=== PATIENT | female | born 1945 | race Caucasian/White ===

== ENCOUNTER 2017-10-26 15:45 | Emergency (ER) | payer MEDICARE, MEDICAID ==
--- NOTE | 2017-10-26 16:41 | ERNOTE ---
Lower Extremity HPI - Narrative Date of Service: 10/26/17 - General Lower Extremities Pain: foot: bilateral, 1st toe: bilateral, 2nd toe: right, 3rd toe: right Time Seen by Provider: 10/26/17 16:11 Source: patient Exam Limitations: no limitations - Immun/Allergies/Home Medications Immunizations: IMMUNIZATION HX History of Influenza Vaccine Yes Allergies/Adverse Reactions: Allergies Allergy/AdvReac Type Severity Reaction Status Date / Time acetaminophen [From Tylenol] Allergy Intermediate affects Verified 10/26/17 15: 55 asthma Home Medications: HOME MEDICATIONS Doxepin HCl [Doxepin] 25 mg PO HS 08/19/13 [Last Taken Unknown] Ibuprofen [Motrin] 800 mg PO DAILY PRN 08/19/13 [Last Taken Unknown] Albuterol Sulfate [Ventolin HFA] 1 puff IH Q6H 10/26/17 [Last Taken Unknown] Duloxetine HCl [Cymbalta] 60 mg PO DAILY 10/26/17 [Last Taken Unknown] Mirtazapine [Mirtazapine (Remeron)] 15 mg PO HS 10/26/17 [Last Taken Unknown] Zolpidem Tartrate [Ambien] 5 mg PO HS 10/26/17 [Last Taken Unknown] - History of Present Illness Narrative: Pt. comes in with c/o lim bite to her R volar MTP pads of her foot. and her L great toe and 1st MTP pad. Pt. denies any SOB CP, NVD, fever but does state that she has pain of her volar foot and her L great toe is numb after being outside without her hoes on for 30minutes to an hour earlier this morning. Pt is unsure of timing. Pt. denies any prehospital treatment other than rewarming Occurred: this morning Location of Incident: home Method of Injury: Reports: other - exposure to cold Modifying Factors - (Improves): Reports: other - denies Modifying Factors - (Worsens): Reports: movement, other - palpation Associated Symptoms: Reports: sensory loss - L great toe Subsequent Symptoms: Reports: numbness Prior Treament: Denies: similar symptoms before Review of Systems - Review of Systems Constitutional: Present: no symptoms reported. Absent: fever, chills, weakness , fatigue, malaise EYE: Present: no symptoms reported. Absent: eye pain, double vision ENT: Present: no symptoms reported. Absent: ear pain, ear discharge, nose pain , nose congestion, sore throat Respiratory: Present: no symptoms reported. Absent: shortness of breath, cough , wheezing Cardiology: Present: no symptoms reported. Absent: chest pain, palpitations, edema Gastrointestinal/Abdominal: Present: no symptoms reported. Absent: nausea, vomiting, diarrhea Genitourinary: Present: no symptoms reported Musculoskeletal: Present: no symptoms reported. Absent: back pain, joint pain Skin: Present: lesions - L great toe volar MTP , change in color - L great toe. Absent: rash, change in hair/nails - Patient's Past Medical History Patient History - Medical: Anxiety Patient History - Cardiac/Respiratory: Asthma Patient History - Cancer: No Hx of Cancer Patient History - Surgical Procedures: Total Hip Replacement Patient History - Other: None - Social History Living Situations: home Psych History: Hx of Anxiety Smoking Status: Current every day smoker Alcohol Use: none Drug Use: none - Immunizations History of Influenza Vaccine: Yes Physical Exam - Physical Exam General Appearance: Present: wd/wn, alert, no apparent distress Head Exam: Present: normal inspection, no evidence of injury Eye Exam: Normal inspection: bilateral, PERRL: bilateral, EOMI: bilateral Ears, Nose, Throat: Present: normal ENT inspection, normal pharynx Neck: Present: normal inspection, nontender, supple, full range of motion. Absent: lymphadenopathy (R), lymphadenopathy (L) Respiratory: Present: no respiratory distress, normal breath sounds, no accessory muscle use, chest nontender, lungs clear. Absent: crackles, rales, rhonchi, wheezing Cardiovascular/Chest: Present: regular rate, rhythm, no murmur, normal peripheral pulses Gastrointestinal/Abdominal: Present: normal bowel sounds, nontender, nondistended, soft, no organomegaly Back Exam: Present: normal inspection Extremity Exam: Present: no edema, decreased range of motion - L great toe, bony tenderness - L great toe and metatarsal R 1st second and third metatarsal Neurological Exam: Present: alert, oriented, normal mood/affect, other - numb L great toe Skin Exam: Present: normal color, warm/dry, other - volar L great toe prox to the MTP joint quarter size painful lesion 1000% becerra eschar, L great toe distal to MTP joint with painless 100% yellow blister with fluid filled, volar R great toe prox to the MTP joint quarter size painful lesion 100% becerra eschar, volar R 2nd toe prox to the MTP joint drea size painful lesion 100% becerra eschar, volar R 3rd toe prox to the MTP joint dime size painful lesion 100% becerra eschar ED Progress - Date and Time Seen: Date and Time: 10/26/17 17:[address] Patel and he recommends transfer of pt. to [facility] burn center. Discussed with Dr Langley brand sales consultant for [facility] burn center and he accepts pt. for transfer. - Vital Signs Patient's Vital Signs:: I have reviewed the patient's vital signs. Vital Signs: Vital Signs 10/26/17 15:48 Temperature 36.3 C L Pulse Rate 84 Respiratory 12 Rate Blood Pressure 131/86 O2 Sat by Pulse 99 Oximetry - Progress/Reassessment Chief Complaint: Lower Extremity Pain/ Injury Progress:: Unchanged Departure Clinical Impression: Frostbite of both feet Qualifiers: Encounter type: initial encounter Qualified Code(s): T33.821A - Superficial frostbite of right foot, initial encounter; T33.822A - Superficial frostbite of left foot, initial encounter; T33.822A - Superficial frostbite of left foot, initial encounter - Departure Disposition: [facility] Condition: Fair Referrals: Trent Sequeira DO [Primary Care Provider] -
[2017-10-26] MEDS ORDERED: KETOROLAC TROMETHAMINE 30 MG/ML VIAL IM ONE (16:42)
[2017-10-26] MEDS ORDERED: KETOROLAC TROMETHAMINE 30 MG/ML VIAL ONE (16:43)
[2017-10-26] MEDS ORDERED: NORMAL SALINE 1,000 ML IV ONE (17:03)
[2017-10-26 17:19] VITALS: BP 125/79
== END 2017-10-26 17:30 | disposition short-term general hospital (02) ==
LOC: ER 15:45
DX: F41.9 Anxiety disorder, unspecified; J45.909 Unspecified asthma, uncomplicated; T33.821A Superficial frostbite of right foot, initial encounter; X31.XXXA Exposure to excessive natural cold, initial encounter; F17.200 Nicotine dependence, unspecified, uncomplicated; T33.822A Superficial frostbite of left foot, initial encounter; Y92.008 Other place in unspecified non-institutional (private) residence as the place of occurrence of the external cause

== ENCOUNTER 2019-09-22 09:42 | Inpatient (IN) ==
[2019-09-22] MEDS ORDERED: NORMAL SALINE 1,000 ML IV ONE ×2 (10:09→12:15)
--- NOTE | 2019-09-22 10:35 | ERNOTE ---
Medical Problem HPI - Narrative Date of Service: 09/22/19 - General Chief Complaint: General Assessment Time Seen by Provider: 09/22/19 09:48 Source: patient - Immun/Allergies/Home Medications Immunizations: IMMUNIZATION HX Immunizations Up to Date No History of Influenza Vaccine Yes Allergies/Adverse Reactions: Allergies acetaminophen [From Tylenol] Allergy (Intermediate, Verified 12/02/18 13:58) affects asthma aspirin Allergy (Intermediate, Verified 12/02/18 13:58) Breathing troubles atorvastatin [From Lipitor] Adverse Reaction (Intermediate, Verified 12/02/18 13:58) Memory issues naproxen [From Naprosyn] Adverse Reaction (Unknown, Verified 12/02/18 13:58) Swelling in lower extremity Home Medications: HOME MEDICATIONS albuterol sulfate 90 mcg/actuation aerosol inhaler 2 puff IH Q6H PRN #8.5 g 08/22/18 [Last Taken Unknown] zolpidem 5 mg tablet 5 mg PO HS #30 tab 08/26/18 [Last Taken Unknown] amoxicillin 875 mg-potassium clavulanate 125 mg tablet 1 tab PO BID #28 tab 09/10/18 [Last Taken Unknown] terbinafine HCl 250 mg tablet 250 mg PO DAILY #30 tab 09/10/18 [Last Taken Unknown] doxepin 25 mg capsule 25 mg PO HS #90 cap 09/22/18 [Last Taken Unknown] fluticasone furoate 100 mcg-vilanterol 25 mcg/dose inhalation powder 1 inh IH DAILY #28 ea 09/22/18 [Last Taken Unknown] fluticasone propionate 50 mcg/actuation nasal spray,suspension 1 spray OLIVER Q12H PRN #16 g 09/22/18 [Last Taken Unknown] mirtazapine 15 mg tablet 15 mg PO HS #90 tab 09/22/18 [Last Taken Unknown] oxybutynin chloride 5 mg tablet 5 mg PO DAILY #90 tab 09/22/18 [Last Taken Unknown] duloxetine 60 mg capsule,delayed release 60 mg PO DAILY #30 cap 07/27/19 [Last Taken Unknown] - History of Present History Narrative: patient presents to ed with c/o weakness, has not eating for several days Timing: constant, getting worse Severity: moderate Modifying Factors - (Improves): Present: other - nothinig Modifying Factors - (Worsens): Present: other - nothing Review of Systems - Review of Systems Constitutional: Present: weakness, fatigue, malaise EYE: Present: no symptoms reported ENT: Present: other - patitient unable to speak due paralysis of vocal cords Respiratory: Present: no symptoms reported Cardiology: Present: no symptoms reported Gastrointestinal/Abdominal: Present: no symptoms reported Genitourinary: Present: no symptoms reported Musculoskeletal: Present: no symptoms reported Skin: Present: no symptoms reported Neurological: Present: no symptoms reported, dizziness/light-headedness, weakness Medical History (Last Updated 02/10/19 @ 16:03 by Jasmin Solomon, RN) Dysphonia (Resolved) Onset Date: 12/19/18 Dr. George Greenfield, [facility] Complete paralysis of vocal cord (Chronic) Onset Date: 12/19/18 Dr. George Greenfield, [facility]. Left. Osteoarthritis (Chronic) Onset Date: Unknown Psoriasis (Chronic) Onset Date: Unknown Overactive bladder (Chronic) Onset Date: 03/14/18 Neuropathy (Chronic) Onset Date: Unknown left leg numbness on an intermittent basis Knee pain (Chronic) Onset Date: Unknown Joint pain (Chronic) Onset Date: Unknown DJD (degenerative joint disease) (Chronic) Onset Date: ~2006 DDD at L4-L5 and spondylosthesis at L4. Neuroforaminal stenosis at L5. Diverticulosis of colon (Chronic) Onset Date: ~07/2005 cecum adenomatous polypand sigmoid diverticulosis Depression (Chronic) Onset Date: Unknown COPD (chronic obstructive pulmonary disease) (Chronic) Onset Date: ~1979 Asthma (Chronic) Onset Date: ~08/28/12 GERD (gastroesophageal reflux disease) Onset Date: Unknown Lumbar disc herniation Onset Date: Unknown Pessary maintenance Onset Date: ~10/29/14 Rectocele Onset Date: Unknown Uterovaginal prolapse, incomplete Onset Date: Unknown Cystocele Onset Date: 05/21/14 Hyperlipidemia Onset Date: Unknown Hypertension Onset Date: Unknown Hypokalemia Onset Date: Unknown Cerebral infarct Onset Date: Unknown lacunar infarcts Surgical History: Surgical History (Last Updated 01/13/19 @ 08:47 by Jasmin Solomon, RN) History of bronchoscopy Onset Date: 01/09/19 Dr. George Greenfield, [facility]. Flexible bronchoscopy. History of carpal tunnel release Onset Date: ~200601/15/2007-right 02/26/2007 left History of colonoscopy Onset Date: ~07/2005 mild/mod diverticulosis involving colon distal to 40cm, 2mm plypoid change to the cecum History of hip replacement Onset Date: ~2007 b/l History of laryngoscopy Onset Date: 01/09/19 Dr. George Greenfield, [facility]. Direct laryngoscopy with endoscope and left Prolaryn gel injection for vocal cord paralysis. History of tubal ligation Onset Date: ~1977 Family History: Family History (Last Updated 09/08/18 @ 15:02 by Kiki Benson [facility]) Sister Hypertension Myocardial infarction Father , age 83-5 vessel CABG Heart disease Mother , age 82 Cancer Colon CA CVA (cerebral vascular accident) Hypertension Glaucoma Psoriasis Daughter , age 42 Cancer Social History: (Last Updated 12/18/18 @ 22:53 by Trent Sequeira DO) Social History: adopted: No long term: No Marital status: lives independently: Yes household members: none number of children: 2 caregiver/support person: Yes current occupational status: retired current occupation: Artist Highest education level completed: Associate degree: occupat Service: No Tobacco: Smoking Status: Light tobacco smoker Alcohol: alcohol intake: current alcohol intake frequency: holiday/special occasion Substance Use: substance use type: does not use Dietary Habits: caffeine: Yes Type: carbonated beverages, coffee Dian/Rastafarian: special dian needs: No Physical Exam - Physical Exam General Appearance: Present: mild distress, lethargic Head Exam: Present: normal inspection, no evidence of injury Eye Exam: Normal inspection: bilateral, PERRL: bilateral, EOMI: bilateral Ears, Nose, Throat: Present: dry mucous membranes Neck: Present: normal inspection, nontender Respiratory: Present: no respiratory distress, normal breath sounds, no accessory muscle use, chest nontender, lungs clear Cardiovascular/Chest: Present: regular rate, rhythm, no murmur, normal peripheral pulses Gastrointestinal/Abdominal: Present: normal bowel sounds, nontender, nondistended, soft, no organomegaly Back Exam: Present: normal inspection, normal range of motion, no CVA tenderness, no vertebral tenderness Extremity Exam: Present: normal inspection, non-tender, normal range of motion, no edema Neurological Exam: Present: alert, oriented, normal mood/affect, no motor/sensory deficits Skin Exam: Present: pallor Lymphatic Exam: Present: no adenopathy Progress - Date and Time Seen: Date and Time: 09/22/19 13:08 discussed labs and condition with dr sequeira to admit to obseervation - Results and Orders Patient's Lab Results:: I have reviewed the patient's lab results. - Vital Signs Patient's Vital Signs:: I have reviewed the patient's vital signs. Vital Signs: Vital Signs 09/22/19 09:43 Temperature 36.7 C Pulse Rate 71 Respiratory Rate 18 Blood Pressure 161/84 H O2 Sat by Pulse Oximetry 98 - EKG EKG #1 EKG: NSR - X-Ray X-Ray #1 X-Ray: chest Interpretation: Discd w/ radiologist - no acute process - Progress/Reassessment Chief Complaint: General Assessment Progress:: Unchanged - Transfer of Care Expected Disposition: Admit Plan - Plan Plan: to admit to observation Departure Clinical Impression: Urinary tract infection, Dehydration - Departure Disposition: Short Term Hospital Inpatient Condition: Serious Referrals: Trent Sequeira DO [Primary Care Provider] -
[2019-09-22 10:42] LABS: Hemoglobin 11.2 gm/dL (12.5-16.0); Mean Cell Volume 88.2 fl (78-100); Mean Corpuscular Hemoglobin 30.9 pg (27-31); Mean Platelet Volume 11.8 fl (8-12.5); Neutrophil # 2.6 K/mm3 (1.3-6.0); Neutrophil % 59.6 % (42-75.0); Platelet Count 142 K/mm3 (150-450); Red Blood Count 3.63 M/mm3 (4.2-5.4); Red Cell Distribution Width 13.5 % (11.5-14.0); White Blood Count 4.3 K/mm3 (4.0-10.5)
[2019-09-22 11:16] LABS: ALT 9 U/L (19-67); AST 9 U/L (0-48); Albumin * 3.4 gm/dl (3.4-5.0); Alkaline Phosphatase * 76 U/L (50-170); Anion Gap 16.5 mmol/L (6.8-13.8); BUN/Creatinine Ratio 16.5 (9.0-21.6); Bilirubin, Total 1.2 mg/dL (0.0-1.1); Blood Urea Nitrogen 14 mg/dL (3-23); Ca. Corrected For Albumin 9.8 mg/dL (8.4-10.2); Calcium * 9.6 mg/dL (7.9-10.9); Carbon Dioxide 24.3 mmol/L (24-32.6); Chloride 106 mmol/L (97-106); Glucose * 75 mg/dL (70-110); Potassium 2.8 mmol/L (3.4-4.6); Sodium 144 mmol/L (132-142); Total Protein 5.5 gm/dL (6.2-8.2); Troponin I Less than 0.017 ng/mL (0.00-0.10)
[2019-09-22 11:23] LABS: Urine Bilirubin Negative (NEGATIVE); Urine Ketone 50 mg/dL (NEGATIVE); Urine Protein Negative (NEGATIVE); Urine Urobilinogen Normal (NORMAL)
[2019-09-22 11:31] LABS: Urine Bacteria 3+; Urine Blood 10 /ul (NEGATIVE); Urine Nitrite Positive (NEGATIVE); Urine RBC 0-5 /hpf (0-5); Urine WBC 25-50 /hpf (0-5)
[2019-09-22 11:42] LABS: Urine Appearance Cloudy (CLEAR); Urine Color Yellow
[2019-09-22] MEDS: POTASSIUM CHLORIDE 20 MEQ in NORMAL SALINE 1,000 ML IV SCH ×2 (14:05→22:45)
[2019-09-22] MEDS ORDERED: FLU VACC QS2019-20(6MOS UP)/PF 60 MCG/0.5 ML SYRINGE IM ONE (17:30)
[2019-09-22] MEDS: IBUPROFEN 600 MG TABLET PO PRN (22:46)
--- NOTE | 2019-09-22 23:36 | HP ---
Chief Complaint - Chief Complaint Date of Service: 09/22/19 Time of Service: 16:00 Chief Complaint: Weakness, confusion History of Present Illness: Nadya is a 74 yo female that presented to the [facility] ER for weakness. She reported she hadn't eaten in a few days and has been living in a trailer without heat for the last 3 months. She reports not eating or drinking well during this time. She has had weakness, fatigue, and confusion. Medical History (Last Reviewed 09/22/19 @ 15:17 by aMry Jo Flores RN) Dysphonia (Resolved) Onset Date: 12/19/18 Dr. George Greenfield, [facility] Complete paralysis of vocal cord (Chronic) Onset Date: 12/19/18 Dr. George Greenfield, [facility]. Left. Osteoarthritis (Chronic) Onset Date: Unknown Psoriasis (Chronic) Onset Date: Unknown Overactive bladder (Chronic) Onset Date: 03/14/18 Neuropathy (Chronic) Onset Date: Unknown left leg numbness on an intermittent basis Knee pain (Chronic) Onset Date: Unknown Joint pain (Chronic) Onset Date: Unknown DJD (degenerative joint disease) (Chronic) Onset Date: ~2006 DDD at L4-L5 and spondylosthesis at L4. Neuroforaminal stenosis at L5. Diverticulosis of colon (Chronic) Onset Date: ~07/2005 cecum adenomatous polypand sigmoid diverticulosis Depression (Chronic) Onset Date: Unknown COPD (chronic obstructive pulmonary disease) (Chronic) Onset Date: ~1979 Asthma (Chronic) Onset Date: ~08/28/12 GERD (gastroesophageal reflux disease) Onset Date: Unknown Lumbar disc herniation Onset Date: Unknown Pessary maintenance Onset Date: ~10/29/14 Rectocele Onset Date: Unknown Uterovaginal prolapse, incomplete Onset Date: Unknown Cystocele Onset Date: 05/21/14 Hyperlipidemia Onset Date: Unknown Hypertension Onset Date: Unknown Hypokalemia Onset Date: Unknown Cerebral infarct Onset Date: Unknown lacunar infarcts Surgical History: Surgical History (Last Reviewed 09/22/19 @ 15:17 by Mary Jo Flores RN) History of bronchoscopy Onset Date: 01/09/19 Dr. George Greenfield, [facility]. Flexible bronchoscopy. History of carpal tunnel release Onset Date: ~200601/15/2007-right 02/26/2007 left History of colonoscopy Onset Date: ~07/2005 mild/mod diverticulosis involving colon distal to 40cm, 2mm plypoid change to the cecum History of hip replacement Onset Date: ~2007 b/l History of laryngoscopy Onset Date: 01/09/19 Dr. George Greenfield, [facility]. Direct laryngoscopy with endoscope and left Prolaryn gel injection for vocal cord paralysis. History of tubal ligation Onset Date: ~1977 Family History: Family History (Last Reviewed 09/22/19 @ 15:17 by Mary Jo Flores RN) Sister Hypertension Myocardial infarction Father , age 83-5 vessel CABG Heart disease Mother , age 82 Cancer Colon CA CVA (cerebral vascular accident) Hypertension Glaucoma Psoriasis Daughter , age 42 Cancer Social History: (Last Reviewed 09/22/19 @ 15:17 by Mary Jo Flores RN) Social History: adopted: No detention: No Marital status: lives independently: Yes household members: none number of children: 2 caregiver/support person: Yes current occupational status: retired current occupation: Artist Highest education level completed: Associate degree: occupat Service: No Tobacco: Smoking Status: Light tobacco smoker Alcohol: alcohol intake: current alcohol intake frequency: holiday/special occasion Substance Use: substance use type: does not use Dietary Habits: caffeine: Yes Type: carbonated beverages, coffee Dian/Buddhism: special dian needs: No Review Of Systems (GEN) - Review of Systems Generalized/Overall Review: Present: Weakness. Absent: Chills, Fever EENTM: Present: No Symptoms Reported Respiratory: Absent: Cough, Shortness of Breath Cardiac: Absent: Chest Pain, Edema, Palpitations Abdominal: Absent: Nausea, Vomiting, Abdominal Pain Genitourinary: Present: No Symptoms Reported Musculoskeletal: Present: No Symptoms Reported Neurological: Present: Weakness Skin: Present: No Symptoms Reported Immunizations: IMMUNIZATION HX Immunizations Up to Date No History of Influenza Vaccine Yes Allergies/Adverse Reactions: Allergies Allergy/AdvReac Type Severity Reaction Status Date / Time acetaminophen [From Tylenol] Allergy Intermediate affects Verified 12/02/18 13:58 asthma aspirin Allergy Intermediate Breathing Verified 12/02/18 13:58 troubles atorvastatin [From Lipitor] AdvReac Intermediate Memory Verified 12/02/18 13:58 issues naproxen [From Naprosyn] AdvReac Unknown Swelling Verified 12/02/18 13:58 in lower extremity Home Medications: HOME MEDICATIONS doxepin 25 mg capsule 25 mg PO HS #90 cap 09/22/18 [Last Taken Unknown] fluticasone propionate 50 mcg/actuation nasal spray,suspension 1 spray OLIVER Q12H PRN #16 g 09/22/18 [Last Taken Unknown] mirtazapine 15 mg tablet 15 mg PO HS #90 tab 09/22/18 [Last Taken Unknown] oxybutynin chloride 5 mg tablet 5 mg PO DAILY #90 tab 09/22/18 [Last Taken Unknown] duloxetine 60 mg capsule,delayed release 60 mg PO DAILY #30 cap 07/27/19 [Last Taken Unknown] Fluticasone/Vilanterol [Breo Ellipta 100-25 Mcg INH] 1 inh INH DAILY 09/22/19 [Last Taken Unknown] Exam - Exam Vital Signs: Vital Signs - Last Taken Temp 37.1 C 09/22/19 22:35 Pulse 69 09/22/19 22:35 Resp 22 H 09/22/19 22:35 BP 118/63 09/22/19 22:35 Pulse Ox 95 09/22/19 22:35 Constitutional: Present: Alert, Cooperative, Other - very soft spoken. Absent: Oriented x3 ENT Exam: Present: hearing grossly normal Eye Exam: bilateral eye: normal inspection Respiratory: Present: lungs clear, normal breath sounds Cardiovascular/Chest: Present: regular rate, rhythm, no murmur Peripheral Pulses: radial (R): 2+, radial (L): 2+ Abdomen: Present: Normal bowel sounds, soft, nontender, nondistended, no rebound tenderness, no hepatospenomegaly Skin Exam: Present: normal color, warm/dry, no cyanosis Diagnostic Studies: Abnormal Lab Results 09/22/19 09/22/19 09/22/19 Range/Units 10:37 10:37 10:41 RBC 3.63 L (4.2-5.4) M/mm3 Hgb 11.2 L (12.5-16.0) gm/dL Hct 32.0 L (37.0-47.0) % Plt Count 142 L (150-450) K/mm3 Eosinophils % 4.0 H (0.0-3.0) % Lymphocytes # 1.15 L (1.5-3.5) k/mm3 Sodium 144 H (132-142) mmol/L Plasma Sodium 144 H (130-142) mmol/L Potassium 2.8 L (3.4-4.6) mmol/L Anion Gap 16.5 H (6.8-13.8) mmol/L Total Bilirubin 1.2 H (0.0-1.1) mg/dL ALT 9 L (19-67) U/L Total Protein 5.5 L (6.2-8.2) gm/dL Urine Blood 10 H (NEGATIVE) /ul Urine Nitrate Positive H (NEGATIVE) Ur Leukocyte Esterase 75 H (NEGATIVE) /ul Urine WBC 25-50 H (0-5) /hpf Urine Bacteria 3+ H (NONE) Laboratory Results WBC 4.3 K/mm3 (4.0-10.5) 09/22/19 10:37 RBC 3.63 M/mm3 (4.2-5.4) L 09/22/19 10:37 Hgb 11.2 gm/dL (12.5-16.0) L 09/22/19 10:37 Hct 32.0 % (37.0-47.0) L 09/22/19 10:37 MCV 88.2 fl (78-100) 09/22/19 10:37 MCH 30.9 pg (27-31) 09/22/19 10:37 MCHC 35.0 g/dl (32-36) 09/22/19 10:37 RDW 13.5 % (11.5-14.0) 09/22/19 10:37 Plt Count 142 K/mm3 (150-450) L 09/22/19 10:37 MPV 11.8 fl (8-12.5) 09/22/19 10:37 Immature Gran % (Auto) 0.20 % (0.001-0.429) 09/22/19 10:37 Immature Gran # (Auto) 0.01 K/mm3 (0.000-0.0310) 09/22/19 10:37 Neutrophils % 59.6 % (42-75.0) 09/22/19 10:37 Lymphocytes % 26.7 % (20-51) 09/22/19 10:37 Monocytes % 8.8 % (0.0-9) 09/22/19 10:37 Eosinophils % 4.0 % (0.0-3.0) H 09/22/19 10:37 Basophils % 0.7 % (0.0-1.0) 09/22/19 10:37 Nucleated RBC % 0.0 k/mm3 (0-1) 09/22/19 10:37 Neutrophils # 2.6 K/mm3 (1.3-6.0) 09/22/19 10:37 Lymphocytes # 1.15 k/mm3 (1.5-3.5) L 09/22/19 10:37 Monocytes # 0.4 k/mm3 (0.0-1.0) 09/22/19 10:37 Eosinophils # 0.2 k/mm3 (0.0-0.7) 09/22/19 10:37 Absolute Basophils 0.0 k/mm3 (0.0-0.1) 09/22/19 10:37 Sodium 144 mmol/L (132-142) H 09/22/19 10:37 Plasma Sodium 144 mmol/L (130-142) H 09/22/19 10:37 Potassium 2.8 mmol/L (3.4-4.6) L 09/22/19 10:37 Chloride 106 mmol/L (97-106) 09/22/19 10:37 Carbon Dioxide 24.3 mmol/L (24-32.6) 09/22/19 10:37 Anion Gap 16.5 mmol/L (6.8-13.8) H 09/22/19 10:37 BUN 14 mg/dL (3-23) 09/22/19 10:37 Creatinine 0.85 mg/dL (0.4-1.4) 09/22/19 10:37 Est GFR (Non-Af Amer) 70 mL/min (60-130) 09/22/19 10:37 BUN/Creatinine Ratio 16.5 (9.0-21.6) 09/22/19 10:37 Random Glucose 75 mg/dL (70-110) 09/22/19 10:37 Lactic Acid, Venous 0.6 mmol/L (0.4-2.0) 09/22/19 10:37 Calcium 9.6 mg/dL (7.9-10.9) 09/22/19 10:37 Calcium Adj for Albumin 9.8 mg/dL (8.4-10.2) 09/22/19 10:37 Total Bilirubin 1.2 mg/dL (0.0-1.1) H 09/22/19 10:37 AST 9 U/L (0-48) 09/22/19 10:37 ALT 9 U/L (19-67) L 09/22/19 10:37 Alkaline Phosphatase 76 U/L (50-170) 09/22/19 10:37 Creatine Kinase 19 U/L (0-259) 09/22/19 12:10 Troponin I Less than 0.017 ng/mL (0.00-0.10) 09/22/19 10:37 C-Reactive Prot, Quant Less than 0.2 mg/dL (0.0-0.9) 09/22/19 10:37 Total Protein 5.5 gm/dL (6.2-8.2) L 09/22/19 10:37 Albumin 3.4 gm/dl (3.4-5.0) 09/22/19 10:37 Urine Color Yellow 09/22/19 10:41 Urine Appearance Cloudy (CLEAR) 09/22/19 10:41 Urine pH 6.0 pH (5.0-7.0) 09/22/19 10:41 Ur Specific [place] 1.020 SP.GR. (1.005-1.010) 09/22/19 10:41 Urine Protein Negative mg/dL (NEGATIVE) 09/22/19 10:41 Urine Glucose (UA) Negative mg/dL (NEGATIVE) 09/22/19 10:41 Urine Ketones 50 mg/dL (NEGATIVE) 09/22/19 10:41 Urine Blood 10 /ul (NEGATIVE) H 09/22/19 10:41 Urine Nitrate Positive (NEGATIVE) H 09/22/19 10:41 Urine Bilirubin Negative mg/dl (NEGATIVE) 09/22/19 10:41 Urine Urobilinogen Normal EU/dl (NORMAL) 09/22/19 10:41 Ur Leukocyte Esterase 75 /ul (NEGATIVE) H 09/22/19 10:41 Urine RBC 0-5 /hpf (0-5) 09/22/19 10:41 Urine WBC 25-50 /hpf (0-5) H 09/22/19 10:41 Ur Epithelial Cells 0-5 /hpf (0-5) 09/22/19 10:41 Urine Bacteria 3+ (NONE) H 09/22/19 10:41 Urine Culture Comments Culture to follow 09/22/19 10:41 Assessment/Plan - Narrative Narrative: Nadya is a 74 yo female admitted with moderate dehydration with electrolyte abnormalities of hypokalemia. Will replace with fluids and potassium. She is symptomatic with weakness, fatigue, and confusion. She does have a history of developing some dementia and mental health problems that could contribute to confusion. Will admit to observation and repeat labs tomorrow if improved, may be discharged. If still having electrolyte abnormalities and need further replacement may need to admit to inpatient status. Possible UTI. Given rocephin in the ER. Will following urine culture. - Assessment/Plan (1) Hypokalemia Problem: Acute (2) Urinary tract infection Problem: Acute (3) Dehydration Problem: Acute
[2019-09-23 06:38] LABS: Hematocrit 30.9 % (37.0-47.0); Hemoglobin 11.2 gm/dL (12.5-16.0); Mean Cell Volume 87.3 fl (78-100); Mean Corpuscular Hemoglobin 31.6 pg (27-31); Mean Corpuscular Hgb Conc 36.2 g/dl (32-36); Mean Platelet Volume 12.3 fl (8-12.5); Neutrophil # 3.5 K/mm3 (1.3-6.0); Neutrophil % 66.7 % (42-75.0); Platelet Count 140 K/mm3 (150-450); Red Blood Count 3.54 M/mm3 (4.2-5.4); Red Cell Distribution Width 13.5 % (11.5-14.0); White Blood Count 5.2 K/mm3 (4.0-10.5)
[2019-09-23] MEDS: POTASSIUM CHLORIDE 20 MEQ in NORMAL SALINE 1,000 ML IV SCH ×2 (06:50→15:55)
[2019-09-23 06:58] LABS: Albumin * 2.8 gm/dl (3.4-5.0); Anion Gap 13.5 mmol/L (6.8-13.8); BUN/Creatinine Ratio 14.6 (9.0-21.6); Bilirubin, Total 0.5 mg/dL (0.0-1.1); Ca. Corrected For Albumin 9.8 mg/dL (8.4-10.2); Calcium * 9.2 mg/dL (7.9-10.9); Carbon Dioxide 21.4 mmol/L (24-32.6); Potassium 2.9 mmol/L (3.4-4.6); Total Protein 4.9 gm/dL (6.2-8.2)
[2019-09-23] MEDS: POTASSIUM CHLORIDE 20 MEQ TABLET.SA PO SCH ×2 (12:03→17:55)
[2019-09-23] MEDS: SULFAMETHOXAZOLE/TRIMETHOPRIM 1 TAB TABLET PO SCH (21:00)
--- NOTE | 2019-09-23 23:50 | PN ---
Subjective - Date and Time Seen Date: 09/23/19 Time: 08:45 Subjective Narrative: She reports feeling week. Speaks very softly. Still confused. No fever, chills, nausea, or vomiting. Objective - Vitals Vitals: Last Vital Signs Temp 36.3 C 09/23/19 21:13 Pulse 68 09/23/19 21:13 Resp 18 09/23/19 21:13 BP 152/75 H 09/23/19 21:13 Pulse Ox 97 09/23/19 21:13 - Abnormal Lab Findings Abnormal Lab Findings: Abnormal Lab Results 09/23/19 09/23/19 Range/Units 06:15 06:15 RBC 3.54 L (4.2-5.4) M/mm3 Hgb 11.2 L (12.5-16.0) gm/dL Hct 30.9 L (37.0-47.0) % MCH 31.6 H (27-31) pg MCHC 36.2 H (32-36) g/dl Plt Count 140 L (150-450) K/mm3 Eosinophils % 4.6 H (0.0-3.0) % Lymphocytes # 1.11 L (1.5-3.5) k/mm3 Sodium 143 H (132-142) mmol/L Plasma Sodium 143 H (130-142) mmol/L Potassium 2.9 L (3.4-4.6) mmol/L Chloride 111 H (97-106) mmol/L Carbon Dioxide 21.4 L (24-32.6) mmol/L ALT 6 L (19-67) U/L Total Protein 4.9 L (6.2-8.2) gm/dL Albumin 2.8 L (3.4-5.0) gm/dl - Exam Constitutional: Present: Alert, Other - very soft spoken Respiratory: Present: lungs clear, normal breath sounds Cardiovascular/Chest: Present: regular rate, rhythm, no murmur Abdomen: Present: soft, nontender, nondistended Skin Exam: Present: normal color, warm/dry, no cyanosis Assessment/Plan Plan Narrative: Nadya is a 74 yo female with significant and symptomatic hypokalemia with metabolic encephalopathy and weakness. She has not corrected with IV fluids with potassium, will add additional potassium orally. Will monitor potassium and mental status. Will consult PT for weakness. She has failed observation treatment and will be admitted to inpatient. Expect another 1-2 midnights for treatment and monitoring of improvement of mental status change. Urine growing gram negative, will start bactrim DS BID. - Problems/Diagnosis (1) Hypokalemia Problem: Acute (2) Urinary tract infection Problem: Acute (3) Dehydration Problem: Acute
[2019-09-24] MEDS: IBUPROFEN 600 MG TABLET PO PRN ×2 (00:29→20:28)
[2019-09-24] MEDS: POTASSIUM CHLORIDE 20 MEQ in NORMAL SALINE 1,000 ML IV SCH ×2 (00:29→08:33)
[2019-09-24] MEDS: SULFAMETHOXAZOLE/TRIMETHOPRIM 1 TAB TABLET PO SCH ×2 (08:35→20:24)
[2019-09-24] MEDS: POTASSIUM CHLORIDE 20 MEQ TABLET.SA PO SCH ×2 (08:35→17:10)
[2019-09-24 11:09] LABS: Albumin * 3.5 gm/dl (3.4-5.0); Anion Gap 15.1 mmol/L (6.8-13.8); BUN/Creatinine Ratio 9.2 (9.0-21.6); Bilirubin, Total 0.5 mg/dL (0.0-1.1); Ca. Corrected For Albumin 9.3 mg/dL (8.4-10.2); Calcium * 9.2 mg/dL (7.9-10.9); Carbon Dioxide 23.4 mmol/L (24-32.6); Potassium 3.5 mmol/L (3.4-4.6); Total Protein 6.4 gm/dL (6.2-8.2)
--- NOTE | 2019-09-24 23:54 | PN ---
Subjective - Date and Time Seen Date: 09/24/19 Time: 16:00 Subjective Narrative: Nadya with significant confusion today. She believed I had and was tears this morning. This afternoon when I went to visit I asked her how she was feeling and reported her bloodwork was improved and her potassium was back to normal and if it stayed up she could potentially go home tomorrow. She then began scooting in her chair to get closer to me and attempted to kick me in the groin. She tried to stand up out of her chair and grab me and said "You're an asshole" and "bastard." I attempted to ask her what was wrong but she told me to "get out," so I left the room. She then proceeded to throw objects in her room and smashed a glass picture frame. Nursing was able to reorient her and calm her down. Objective - Vitals Vitals: Last Vital Signs Temp 36.3 C 09/24/19 21:17 Pulse 75 09/24/19 22:00 Resp 14 09/24/19 21:17 BP 150/87 H 09/24/19 21:17 Pulse Ox 98 09/24/19 21:17 - Abnormal Lab Findings Abnormal Lab Findings: Abnormal Lab Results 09/24/19 Range/Units 09:50 Chloride 107 H (97-106) mmol/L Carbon Dioxide 23.4 L (24-32.6) mmol/L Anion Gap 15.1 H (6.8-13.8) mmol/L ALT 10 L (19-67) U/L - Exam Exam Narrative: Nadya was confused and aggressive. I was not able to examine her due to behaviors. Constitutional: Present: Alert Respiratory: Present: no respiratory distress Assessment/Plan Plan Narrative: Metabolic encephalopathy, suspect secondary to UTI. Continue to treat with antibiotics based on culture. Potassium is replaced, will monitor. - Problems/Diagnosis (1) Hypokalemia Problem: Acute (2) Urinary tract infection Problem: Acute (3) Dehydration Problem: Acute
[2019-09-25 08:32] LABS: Hematocrit 39.5 % (37.0-47.0); Hemoglobin 13.9 gm/dL (12.5-16.0); Mean Cell Volume 88.6 fl (78-100); Mean Corpuscular Hemoglobin 31.2 pg (27-31); Mean Corpuscular Hgb Conc 35.2 g/dl (32-36); Neutrophil # 2.4 K/mm3 (1.3-6.0); Neutrophil % 56.6 % (42-75.0); Platelet Count 174 K/mm3 (150-450); Red Blood Count 4.46 M/mm3 (4.2-5.4); Red Cell Distribution Width 13.9 % (11.5-14.0); White Blood Count 4.2 K/mm3 (4.0-10.5)
[2019-09-25 08:46] LABS: Albumin * 3.9 gm/dl (3.4-5.0); Anion Gap 13.7 mmol/L (6.8-13.8); BUN/Creatinine Ratio 9.6 (9.0-21.6); Bilirubin, Total 0.9 mg/dL (0.0-1.1); Ca. Corrected For Albumin 9.3 mg/dL (8.4-10.2); Calcium * 9.5 mg/dL (7.9-10.9); Potassium 3.7 mmol/L (3.4-4.6); Total Protein 6.9 gm/dL (6.2-8.2)
[2019-09-25] MEDS ORDERED: FLUTICASONE PROPION/SALMETEROL 14 PUFF DISK.W.DEV IH SCH (09:00)
[2019-09-25] MEDS ORDERED: OXYBUTYNIN CHLORIDE 5 MG TABLET PO SCH (09:00)
[2019-09-25] MEDS ORDERED: DULoxetine HCL 30 MG CAPSULE.SA PO SCH (09:00)
[2019-09-25] MEDS: SULFAMETHOXAZOLE/TRIMETHOPRIM 1 TAB TABLET PO SCH (09:02)
[2019-09-25] MEDS: POTASSIUM CHLORIDE 20 MEQ TABLET.SA PO SCH (09:02)
[2019-09-25] MEDS: POTASSIUM CHLORIDE 20 MEQ in NORMAL SALINE 1,000 ML IV SCH ×2 (14:16→14:17)
--- NOTE | 2019-09-25 14:23 | DS ---
(1) Urinary tract infection Problem: Acute Qualifiers: Urinary tract infection type: acute cystitis Hematuria presence: without hematuria Qualified Code(s): N30.00 - Acute cystitis without hematuria (2) Hypokalemia Problem: Resolved (3) Dehydration Problem: Resolved Date of Discharge:: 09/25/19 Description of Stay: Nadya is a 74 yo female that had been living in a trailer without heat for the past 3 months. She reports she had not been eating or drinking as well as she should have. She was progressively getting weaker and presented to the [facility] ER. She was admitted with hypokalemia of 2.8 and evidence of a UTI and moderate dehydration. She was initially given rocephin and IV fluids with potassium. Potassium did not immediately correct and she had confusion with metabolic encephalopathy. She has some baseline dementia but her confusion appeared to be significantly worse than normal. During her hospital course she reported being to me, she then believed that the hospital had called to tell her I had , and then she became became upset with me and had aggressive behaviors and attempted to kick me. She had no inappropriate behaviors with any other staff members and requested that she no longer see me as a patient. As she was appropriate in all other regards, vitals normal, potassium normalized, and her brother has everything set up at home for her with working heat, space heaters, and plenty of food. The bother lives nearby and will check on her. She feels ready for discharge and would like to follow up with a new Dr. Urine culture ultimately grew bacteria sensitive to Bactrim. She was started on this in the hospital and needs three more days of antibiotics. She will follow up fabiana Kramer in the clinic. Procedures Performed: none Results and Findings: Pending Mircobiology Results 09/22/19 12:10 Blood Blood Culture - Preliminary NO GROWTH AFTER 48 HOURS 09/22/19 10:37 Blood Blood Culture - Preliminary NO GROWTH AFTER 48 HOURS Lab Pending Results 09/22/19 10:37: WBC 4.3, RBC 3.63 L, Hgb 11.2 L, Hct 32.0 L, MCV 88.2, MCH 30.9, MCHC 35.0, RDW 13.5, Plt Count 142 L, MPV 11.8, Immature Gran % (Auto) 0.20, Immature Gran # (Auto) 0.01, Neutrophils % 59.6, Lymphocytes % 26.7, Monocytes % 8.8, Eosinophils % 4.0 H, Basophils % 0.7, Nucleated RBC % 0.0, Neutrophils # 2.6, Lymphocytes # 1.15 L, Monocytes # 0.4, Eosinophils # 0.2, Absolute Basophils 0.0 09/22/19 10:37: Sodium 144 H, Plasma Sodium 144 H, Potassium 2.8 L, Chloride 106, Carbon Dioxide 24.3, Anion Gap 16.5 H, BUN 14, Creatinine 0.85, Est GFR (Non-Af Amer) 70, BUN/Creatinine Ratio 16.5, Random Glucose 75, Calcium 9.6, Calcium Adj for Albumin 9.8, Total Bilirubin 1.2 H, AST 9, ALT 9 L, Alkaline Phosphatase 76, Troponin I Less than 0.017, C-Reactive Prot, Quant Less than 0.2, Total Protein 5.5 L, Albumin 3.4 09/22/19 10:37: Lactic Acid, Venous 0.6 09/22/19 10:41: Urine Color Yellow, Urine Appearance Cloudy, Urine pH 6.0, Ur Specific [place] 1.020, Urine Protein Negative, Urine Glucose (UA) Negative, Urine Ketones 50, Urine Blood 10 H, Urine Nitrate Positive H, Urine Bilirubin Negative, Urine Urobilinogen Normal, Ur Leukocyte Esterase 75 H, Urine RBC 0-5, Urine WBC 25-50 H, Ur Epithelial Cells 0-5, Urine Bacteria 3+ H, Urine Culture Comments Culture to follow 09/22/19 12:10: Creatine Kinase 09/23/19 06:15: WBC 5.2 D, RBC 3.54 L, Hgb 11.2 L, Hct 30.9 L, MCV 87.3, MCH 31.6 H, MCHC 36.2 H, RDW 13.5, Plt Count 140 L, MPV 12.3, Immature Gran % (Auto) 0.20, Immature Gran # (Auto) 0.01, Neutrophils % 66.7, Lymphocytes % 21.2, Monocytes % 6.7, Eosinophils % 4.6 H, Basophils % 0.6, Nucleated RBC % 0.0, Neutrophils # 3.5, Lymphocytes # 1.11 L, Monocytes # 0.4, Eosinophils # 0.2, Absolute Basophils 0.0 09/23/19 06:15: Sodium 143 H, Plasma Sodium 143 H, Potassium 2.9 L, Chloride 111 H, Carbon Dioxide 21.4 L, Anion Gap 13.5, BUN 12, Creatinine 0.82, Est GFR (Non- Af Amer) 73, BUN/Creatinine Ratio 14.6, Random Glucose 106 D, Calcium 9.2, Calcium Adj for Albumin 9.8, Total Bilirubin 0.5, AST 10, ALT 6 L, Alkaline Phosphatase 72, Total Protein 4.9 L, Albumin 2.8 L 09/24/19 09:50: Sodium 142, Plasma Sodium 142, Potassium 3.5 D, Chloride 107 H, Carbon Dioxide 23.4 L, Anion Gap 15.1 H, BUN 7, Creatinine 0.76, Est GFR (Non-Af Amer) 80, BUN/Creatinine Ratio 9.2, Random Glucose 104, Calcium 9.2, Calcium Adj for Albumin 9.3, Total Bilirubin 0.5, AST 13, ALT 10 L, Alkaline Phosphatase 87, Total Protein 6.4, Albumin 3.5 09/25/19 08:30: WBC 4.2, RBC 4.46, Hgb 13.9, Hct 39.5, MCV 88.6, MCH 31.2 H, MCHC 35.2, RDW 13.9, Plt Count 174, MPV 12.0, Immature Gran % (Auto) 0.20, Immature Gran # (Auto) 0.01, Neutrophils % 56.6, Lymphocytes % 28.1, Monocytes % 6.0, Eosinophils % 8.4 H, Basophils % 0.7, Nucleated RBC % 0.0, Neutrophils # 2.4, Lymphocytes # 1.17 L, Monocytes # 0.3, Eosinophils # 0.4, Absolute Basophils 0.0 09/25/19 08:30: Sodium 140, Plasma Sodium 140, Potassium 3.7, Chloride 103, Carbon Dioxide 27.0, Anion Gap 13.7, BUN 8, Creatinine 0.83, Est GFR (Non-Af Amer) 72, BUN/Creatinine Ratio 9.6, Random Glucose 126 H, Calcium 9.5, Calcium Adj for Albumin 9.3, Total Bilirubin 0.9, AST 13, ALT 12 L, Alkaline Phosphatase 96, Total Protein 6.9, Albumin 3.9 Discharge Location: Home Disposition: Home Health Service Home Health Agency: Other - [facility] [place], [place] Condition: Fair Discharge Activity: Activity as tolerated Discharge Diet: General/regular food Referrals: Arcelia Kramer MD [Staff Physician] - One Week Additional Patient Instructions (free text): TCM appt Prescriptions (Any new or edited meds): Sulfamethoxazole/Trimethoprim [Bactrim Ds] 1 tab PO BID #6 tab Transmission Status: Pending to [facility] [place] [place] Complete Home Medications List: Complete Home Medication List: doxepin 25 mg capsule 25 mg PO HS #90 cap 09/22/18 fluticasone propionate 50 mcg/actuation nasal spray,suspension 1 spray OLIVER Q12H PRN #16 g 09/22/18 mirtazapine 15 mg tablet 15 mg PO HS #90 tab 09/22/18 oxybutynin chloride 5 mg tablet 5 mg PO DAILY #90 tab 09/22/18 duloxetine 60 mg capsule,delayed release 60 mg PO DAILY #30 cap 07/27/19 Fluticasone/Vilanterol [Breo Ellipta 100-25 Mcg INH] 1 inh INH DAILY 09/22/19 Ibuprofen [Motrin] 600 mg PO Q6H PRN tablet 09/25/19 Sulfamethoxazole/Trimethoprim [Bactrim Ds] 1 tab PO BID #6 tab 09/25/19
[2019-09-25 15:56] VITALS: BP 132/75
[2019-09-25] MEDS ORDERED: MIRTAZAPINE 15 MG TABLET PO SCH (21:00)
[2019-09-25] MEDS ORDERED: DOXEPIN HCL 25 MG CAPSULE PO SCH (21:00)
[2019-09-26] MEDS ORDERED: DULoxetine HCL 20 MG CAPSULE.SA PO SCH (09:00)
== END 2019-09-25 16:00 | disposition home health service (06) | DRG 689 ==
LOC: MS 09:42 → ER 09:42 → MS 14:08
PROVIDERS: ADMIT Family Medicine; ATTEND Family Medicine
DX: Z23 Encounter for immunization; E86.0 Dehydration; N39.0 Urinary tract infection, site not specified; R53.1 Weakness; G93.41 Metabolic encephalopathy; E87.6 Hypokalemia; B96.20 Unspecified Escherichia coli [E. coli] as the cause of diseases classified elsewhere; I10 Essential (primary) hypertension; R41.0 Disorientation, unspecified
CPT/HCPCS: 36415; 71020; 71046; 80053; 81001; 82550; 83605; 84484; 85025; 86140; 87040; 87077; 87086; 87186; 90686; 93005; 96361; 96365; 96366; 96367; 97110; 97116; 97161; 99284; G0378

== ENCOUNTER 2020-02-05 17:09 | Observation (INO) ==
[2020-02-05] MEDS ORDERED: NORMAL SALINE 1,000 ML IV ONE (17:24)
--- NOTE | 2020-02-05 17:31 | ERNOTE ---
Medical Problem HPI - General Chief Complaint: Altered Mental Status Time Seen by Provider: 02/05/20 17:10 Source: patient Exam Limitations: clinical condition - Immun/Allergies/Home Medications Immunizations: IMMUNIZATION HX Immunizations Up to Date No History of Influenza Vaccine More Information Required Hx Pneumococcal Vaccination More Information Required Allergies/Adverse Reactions: Allergies acetaminophen [From Tylenol] Allergy (Intermediate, Verified 02/05/20 17:16) affects asthma aspirin Allergy (Intermediate, Verified 02/05/20 17:16) Breathing troubles atorvastatin [From Lipitor] Adverse Reaction (Intermediate, Verified 02/05/20 1 7:16) Memory issues naproxen [From Naprosyn] Adverse Reaction (Unknown, Verified 02/05/20 17:16) Swelling in lower extremity Home Medications: HOME MEDICATIONS doxepin 25 mg capsule 25 mg PO HS #90 cap 09/22/18 [Last Taken Unknown] fluticasone propionate 50 mcg/actuation nasal spray,suspension 1 spray OLIVER Q12H PRN #16 g 09/22/18 [Last Taken Unknown] mirtazapine 15 mg tablet 15 mg PO HS #90 tab 09/22/18 [Last Taken Unknown] oxybutynin chloride 5 mg tablet 5 mg PO DAILY #90 tab 09/22/18 [Last Taken Unknown] duloxetine 60 mg capsule,delayed release 60 mg PO DAILY #30 cap 07/27/19 [Last Taken Unknown] Fluticasone/Vilanterol [Breo Ellipta 100-25 Mcg INH] 1 inh INH DAILY 09/22/19 [Last Taken Unknown] Ibuprofen [Motrin] 600 mg PO Q6H PRN tab 09/25/19 [Last Taken Unknown] - History of Present History Narrative: The patient is coming to the ER for confusion. She is living in a trailer in [place], and today workers from [employer] found confused lying on the floor of a trailer and called EMS. On EMS arrival patient was alert, she speaks with a very soft voice, reports back pain (chronic), but denies any other problems. On review of her chart patient was admitted 3 months ago for confusion associated with a UTI and dehydration, apparently at that time she did not have any heat in a trailer and not enough food supply. In the chart a brother is mentioned that made sure that patient had eaten food when she returned home. When I asked the patient about any relatives who help she denies having anybody at this point.. Patient denies any recent illness, knows that she is in the hospital but is confused about the date. She denies any chronic medical problems or current medications even though in the chart she is on multiple medications including for dementia. Review of Systems - Review of Systems Constitutional: Absent: recent illness, fever ENT: Absent: nose congestion, sore throat Respiratory: Absent: shortness of breath Cardiology: Absent: chest pain Gastrointestinal/Abdominal: Absent: nausea Musculoskeletal: Present: See HPI, back pain Neurological: Absent: headache Medical History (Last Reviewed 02/05/20 @ 17:30 by Ivonne Sandoval MD) Dysphonia (Resolved) Onset Date: 12/19/18 Dr. George Greenfield [facility] Complete paralysis of vocal cord (Chronic) Onset Date: 12/19/18 Dr. George Greenfield [facility]. Left. Osteoarthritis (Chronic) Onset Date: Unknown Psoriasis (Chronic) Onset Date: Unknown Overactive bladder (Chronic) Onset Date: 03/14/18 Neuropathy (Chronic) Onset Date: Unknown left leg numbness on an intermittent basis Knee pain (Chronic) Onset Date: Unknown Joint pain (Chronic) Onset Date: Unknown DJD (degenerative joint disease) (Chronic) Onset Date: ~2006 DDD at L4-L5 and spondylosthesis at L4. Neuroforaminal stenosis at L5. Diverticulosis of colon (Chronic) Onset Date: ~07/2005 cecum adenomatous polypand sigmoid diverticulosis Depression (Chronic) Onset Date: Unknown COPD (chronic obstructive pulmonary disease) (Chronic) Onset Date: ~1979 Asthma (Chronic) Onset Date: ~08/28/12 GERD (gastroesophageal reflux disease) Onset Date: Unknown Lumbar disc herniation Onset Date: Unknown Pessary maintenance Onset Date: ~10/29/14 Rectocele Onset Date: Unknown Uterovaginal prolapse, incomplete Onset Date: Unknown Cystocele Onset Date: 05/21/14 Hyperlipidemia Onset Date: Unknown Hypertension Onset Date: Unknown Hypokalemia Onset Date: Unknown Cerebral infarct Onset Date: Unknown lacunar infarcts Surgical History: Surgical History (Last Reviewed 02/05/20 @ 17:30 by Ivonne Sandoval MD) History of bronchoscopy Onset Date: 01/09/19 Dr. George Greenfield, [facility]. Flexible bronchoscopy. History of carpal tunnel release Onset Date: ~200601/15/2007-right 02/26/2007 left History of colonoscopy Onset Date: ~07/2005 mild/mod diverticulosis involving colon distal to 40cm, 2mm plypoid change to the cecum History of hip replacement Onset Date: ~2007 b/l History of laryngoscopy Onset Date: 01/09/19 Dr. George Greenfield, [facility]. Direct laryngoscopy with endoscope and left Prolaryn gel injection for vocal cord paralysis. History of tubal ligation Onset Date: ~1977 Family History: Family History (Last Reviewed 02/05/20 @ 17:16 by Syl Arnold, JEANETTE) Sister Hypertension Myocardial infarction Father , age 83-5 vessel CABG Heart disease Mother , age 82 Cancer Colon CA CVA (cerebral vascular accident) Hypertension Glaucoma Psoriasis Daughter , age 42 Cancer Social History: (Last Reviewed 02/05/20 @ 17:16 by Syl Arnold, JEANETTE) Social History: adopted: No half-way: No Marital status: lives independently: Yes household members: none number of children: 2 caregiver/support person: Yes current occupational status: retired current occupation: Artist Highest education level completed: Associate degree: occupat Service: No Tobacco: Smoking Status: Light tobacco smoker Alcohol: alcohol intake: current alcohol intake frequency: holiday/special occasion Substance Use: substance use type: does not use Dietary Habits: caffeine: Yes Type: carbonated beverages, coffee Dian/Mandaeism: special dian needs: No Physical Exam - Physical Exam General Appearance: Present: wd/wn, alert, no apparent distress, other - clean skin and clothes Head Exam: Present: normal inspection, no evidence of injury Eye Exam: Normal inspection: bilateral Ears, Nose, Throat: Present: normal ENT inspection, dry mucous membranes Respiratory: Present: no respiratory distress, no accessory muscle use, lungs clear, decreased breath sounds Cardiovascular/Chest: Present: regular rate, rhythm, no murmur Gastrointestinal/Abdominal: Present: normal bowel sounds, nontender, nondistended, soft Back Exam: Present: normal inspection, no CVA tenderness, no vertebral tenderness Extremity Exam: Present: non-tender, normal range of motion, no edema Neurological Exam: Present: alert, no motor/sensory deficits, disoriented to time, disoriented to situation. Absent: facial droop, disoriented to person, disoriented to place Skin Exam: Present: normal color, warm/dry Progress - Results and Orders Patient's Lab Results:: I have reviewed the patient's lab results. - Vital Signs Patient's Vital Signs:: I have reviewed the patient's vital signs. Vital Signs: Vital Signs 02/05/20 17:10 02/05/20 17:16 Temperature 36.5 C Pulse Rate 83 96 Respiratory Rate 18 Blood Pressure 141/92 H O2 Sat by Pulse Oximetry 97 - EKG EKG #1 EKG: NSR, nonspecific ST T wave changes EKG read: Interp. by me - Progress/Reassessment Chief Complaint: Altered Mental Status Progress Note-Subjective: 02/05/20 18:45 discussed test results with patient, offered admission for UTI,dehydration and hypokalemia, patient agreed 02/05/20 18:45 Discussed patient in diagnosis with trae Le to admit for observation and start Bactrim, most recent culture from admission in September 2019 grew E. coli sensitive to Bactrim. Departure Clinical Impression: Confusion, Dehydration, Hypokalemia, Hypernatremia Urinary tract infection Qualifiers: Urinary tract infection type: acute cystitis Hematuria presence: with hematuria Qualified Code(s): N30.01 - Acute cystitis with hematuria - Departure Disposition: Still a patient Condition: Stable
[2020-02-05 17:37] LABS: Hematocrit 36.4 % (37.0-47.0); Hemoglobin 12.8 gm/dL (12.5-16.0); Mean Cell Volume 88.8 fl (78-100); Mean Corpuscular Hemoglobin 31.2 pg (27-31); Mean Corpuscular Hgb Conc 35.2 g/dl (32-36); Mean Platelet Volume 11.6 fl (8-12.5); Neutrophil # 7.3 K/mm3 (1.3-6.0); Neutrophil % 79.3 % (42-75.0); Platelet Count 191 K/mm3 (150-450); Red Cell Distribution Width 13.9 % (11.5-14.0); White Blood Count 9.2 K/mm3 (4.0-10.5)
[2020-02-05 17:51] LABS: ALT 13 U/L (19-67); AST 19 U/L (0-48); Albumin * 3.7 gm/dl (3.4-5.0); Alkaline Phosphatase * 73 U/L (50-170); Anion Gap 17.6 mmol/L (6.8-13.8); BUN/Creatinine Ratio 15.3 (9.0-21.6); Bilirubin, Total 2.1 mg/dL (0.0-1.1); Blood Urea Nitrogen 19 mg/dL (3-23); CRP 4.6 mg/dL (0.0-0.9); Ca. Corrected For Albumin 10.7 mg/dL (8.4-10.2); Calcium * 10.8 mg/dL (7.9-10.9); Carbon Dioxide 24.2 mmol/L (24-32.6); Chloride 109 mmol/L (97-106); Glucose * 117 mg/dL (70-110); Potassium 2.8 mmol/L (3.4-4.6); Sodium 148 mmol/L (132-142); Total Protein 6.7 gm/dL (6.2-8.2)
[2020-02-05 18:28] LABS: Urine Bilirubin 1 mg/dl (NEGATIVE); Urine Blood 50 /ul (NEGATIVE); Urine Ketone 15 mg/dL (NEGATIVE); Urine Nitrite Negative (NEGATIVE); Urine Protein 30 mg/dL (NEGATIVE); Urine Specific Gravity 1.025 SP.GR. (1.005-1.010); Urine Urobilinogen Normal (NORMAL)
[2020-02-05 18:40] LABS: Urine Appearance Cloudy (CLEAR); Urine Bacteria 3+; Urine Color Yellow
[2020-02-05] MEDS: POTASSIUM CHLORIDE IN WATER 100 ML IV SCH ×4 (19:11→22:29)
[2020-02-05] MEDS: SULFAMETHOXAZOLE/TRIMETHOPRIM 1 TAB TABLET PO SCH ×2 (20:26→21:05)
[2020-02-06 06:33] LABS: Albumin * 3.2 gm/dl (3.4-5.0); Anion Gap 13.9 mmol/L (6.8-13.8); BUN/Creatinine Ratio 15.7 (9.0-21.6); Bilirubin, Total 1.7 mg/dL (0.0-1.1); Calcium * 9.7 mg/dL (7.9-10.9); Carbon Dioxide 24.3 mmol/L (24-32.6); Potassium 3.2 mmol/L (3.4-4.6)
--- NOTE | 2020-02-06 07:08 | HP ---
Chief Complaint - Chief Complaint Date of Service: 02/06/20 Time of Service: 07:08 Chief Complaint: Confusion History of Present Illness: History largely obtained from ER physician sign out. [employer] went to deliver yesterday and found her on the floor, and she seemed confused. On my exam, she makes eye contact and answers questions with a yes or no. She reports a history of asthma. She denies chest pain, shortness of breath, abdominal pain, bowel habit changes, skin changes, urinary complaints. She states "my house" as her location, and the month as July. Workup in the ED found hypokalemia with K+ of 2.6, UTI with leuk esterase, 3+ bacteria, and blood on UA. ETOH negative, and no significant abnormalities of her vitals. Her BP is mildly high. Chart review shows a similar admission in September 2019. Medical History (Last Reviewed 02/05/20 @ 22:48 by Jazzy Alvarenga RN) Dysphonia (Resolved) Onset Date: 12/19/18 Dr. George Greenfield, [facility] Complete paralysis of vocal cord (Chronic) Onset Date: 12/19/18 Dr. George Greenfield, [facility]. Left. Osteoarthritis (Chronic) Onset Date: Unknown Psoriasis (Chronic) Onset Date: Unknown Overactive bladder (Chronic) Onset Date: 03/14/18 Neuropathy (Chronic) Onset Date: Unknown left leg numbness on an intermittent basis Knee pain (Chronic) Onset Date: Unknown Joint pain (Chronic) Onset Date: Unknown DJD (degenerative joint disease) (Chronic) Onset Date: ~2006 DDD at L4-L5 and spondylosthesis at L4. Neuroforaminal stenosis at L5. Diverticulosis of colon (Chronic) Onset Date: ~07/2005 cecum adenomatous polypand sigmoid diverticulosis Depression (Chronic) Onset Date: Unknown COPD (chronic obstructive pulmonary disease) (Chronic) Onset Date: ~1979 Asthma (Chronic) Onset Date: ~08/28/12 GERD (gastroesophageal reflux disease) Onset Date: Unknown Lumbar disc herniation Onset Date: Unknown Pessary maintenance Onset Date: ~10/29/14 Rectocele Onset Date: Unknown Uterovaginal prolapse, incomplete Onset Date: Unknown Cystocele Onset Date: 05/21/14 Hyperlipidemia Onset Date: Unknown Hypertension Onset Date: Unknown Hypokalemia Onset Date: Unknown Cerebral infarct Onset Date: Unknown lacunar infarcts Surgical History: Surgical History (Last Reviewed 02/05/20 @ 22:50 by Jazzy Alvarenga RN) History of bronchoscopy Onset Date: 01/09/19 Dr. George Greenfield [facility]. Flexible bronchoscopy. History of carpal tunnel release Onset Date: ~200601/15/2007-right 02/26/2007 left History of colonoscopy Onset Date: ~07/2005 mild/mod diverticulosis involving colon distal to 40cm, 2mm plypoid change to the cecum History of hip replacement Onset Date: ~2007 b/l History of laryngoscopy Onset Date: 01/09/19 Dr. George Greenfield, [facility]. Direct laryngoscopy with endoscope and left Prolaryn gel injection for vocal cord paralysis. History of tubal ligation Onset Date: ~1977 Family History: Family History (Last Reviewed 02/05/20 @ 22:50 by Jazzy Alvarenga RN) Sister Hypertension Myocardial infarction Father , age 83-5 vessel CABG Heart disease Mother , age 82 Cancer Colon CA CVA (cerebral vascular accident) Hypertension Glaucoma Psoriasis Daughter , age 42 Cancer Social History: (Last Updated 02/05/20 @ 22:50 by Jazzy Alvarenga RN) Social History: adopted: No prison: No Marital status: lives independently: Yes household members: none number of children: 2 caregiver/support person: Yes current occupational status: retired current occupation: Artist Highest education level completed: Associate degree: occupat Service: No Tobacco: Smoking Status: Former smoker Alcohol: alcohol intake: current alcohol intake frequency: holiday/special occasion Substance Use: substance use type: does not use Dietary Habits: caffeine: Yes Type: carbonated beverages, coffee Dian/Jehovah'S Witness: special dian needs: No Review Of Systems (GEN) - Review of Systems Generalized/Overall Review: Present: Weakness. Absent: Fever EENTM: Present: Other - Hx of vocal cord dysfunction Cardiac: Absent: Chest Pain, Edema Abdominal: Present: Other - unsure when she had a BM. Absent: Nausea, Vomiting Genitourinary: Present: No Symptoms Reported Musculoskeletal: Present: No Symptoms Reported Neurological: Present: No Symptoms Reported Skin: Present: No Symptoms Reported Immunizations: IMMUNIZATION HX Immunizations Up to Date No History of Influenza Vaccine More Information Required Hx Pneumococcal Vaccination More Information Required Allergies/Adverse Reactions: Allergies Allergy/AdvReac Type Severity Reaction Status Date / Time acetaminophen [From Tylenol] Allergy Intermediate affects Verified 02/05/20 17:16 asthma aspirin Allergy Intermediate Breathing Verified 02/05/20 17:16 troubles atorvastatin [From Lipitor] AdvReac Intermediate Memory Verified 02/05/20 17:16 issues naproxen [From Naprosyn] AdvReac Unknown Swelling Verified 02/05/20 17:16 in lower extremity Home Medications: HOME MEDICATIONS doxepin 25 mg capsule 25 mg PO HS #90 cap 09/22/18 [Last Taken Unknown] fluticasone propionate 50 mcg/actuation nasal spray,suspension 1 spray [place] Q12H PRN #16 g 09/22/18 [Last Taken Unknown] mirtazapine 15 mg tablet 15 mg PO HS #90 tab 09/22/18 [Last Taken Unknown] oxybutynin chloride 5 mg tablet 5 mg PO DAILY #90 tab 09/22/18 [Last Taken Unknown] duloxetine 60 mg capsule,delayed release 60 mg PO DAILY #30 cap 07/27/19 [Last Taken Unknown] Fluticasone/Vilanterol [Breo Ellipta 100-25 Mcg INH] 1 inh INH DAILY 09/22/19 [Last Taken Unknown] Ibuprofen [Motrin] 600 mg PO Q6H PRN tab 09/25/19 [Last Taken Unknown] Exam - Exam Vital Signs: Vital Signs - Last Taken Temp 37.0 C 02/06/20 06:17 Pulse 65 02/06/20 06:17 Resp 16 02/06/20 06:17 BP 152/83 H 02/06/20 06:17 Pulse Ox 98 02/06/20 06:17 Constitutional: Present: No distress, Elderly, Thin and frail ENT Exam: Present: dry mucous membranes Respiratory: Present: lungs clear, normal breath sounds, no respiratory distress Cardiovascular/Chest: Present: regular rate, rhythm Abdomen: Present: soft, tender - mild, diffuse Extremity: Absent: lower extremity edema Skin Exam: Present: other - multiple upper and lower extremity tattoos Neurologic: Present: other - Oriented to self only Eye contact: Present: good eye contact Diagnostic Studies: Abnormal Lab Results 02/05/20 02/05/20 02/05/20 Range/Units 17:30 17:30 18:24 RBC 4.10 L (4.2-5.4) M/mm3 Hct 36.4 L (37.0-47.0) % MCH 31.2 H (27-31) pg Neutrophils % 79.3 H (42-75.0) % Lymphocytes % 11.7 L (20-51) % Neutrophils # 7.3 H (1.3-6.0) K/mm3 Lymphocytes # 1.08 L (1.5-3.5) k/mm3 Sodium 148 H (132-142) mmol/L Plasma Sodium 148 H (130-142) mmol/L Potassium 2.8 L (3.4-4.6) mmol/L Chloride 109 H (97-106) mmol/L Anion Gap 17.6 H (6.8-13.8) mmol/L Est GFR (Non-Af Amer) 45 L (60-130) mL/min Random Glucose 117 H (70-110) mg/dL Calcium Adj for Albumin 10.7 H (8.4-10.2) mg/dL Total Bilirubin 2.1 H (0.0-1.1) mg/dL ALT 13 L (19-67) U/L C-Reactive Prot, Quant 4.6 H (0.0-0.9) mg/dL Total Protein (6.2-8.2) gm/dL Albumin (3.4-5.0) gm/dl Urine Protein 30 H (NEGATIVE) mg/dL Urine Blood 50 H (NEGATIVE) /ul Urine Bilirubin 1 H (NEGATIVE) mg/dl Ur Leukocyte Esterase 25 H (NEGATIVE) /ul Urine RBC 5-10 H (0-5) /hpf Urine WBC 5-10 H (0-5) /hpf Urine Bacteria 3+ H (NONE) //20 Range/Units 06:05 RBC (4.2-5.4) M/mm3 Hct (37.0-47.0) % MCH (27-31) pg Neutrophils % (42-75.0) % Lymphocytes % (20-51) % Neutrophils # (1.3-6.0) K/mm3 Lymphocytes # (1.5-3.5) k/mm3 Sodium 146 H (132-142) mmol/L Plasma Sodium 146 H (130-142) mmol/L Potassium 3.2 L (3.4-4.6) mmol/L Chloride 111 H (97-106) mmol/L Anion Gap 13.9 H (6.8-13.8) mmol/L Est GFR (Non-Af Amer) 57 L D (60-130) mL/min Random Glucose (70-110) mg/dL Calcium Adj for Albumin (8.4-10.2) mg/dL Total Bilirubin 1.7 H (0.0-1.1) mg/dL ALT 11 L (19-67) U/L C-Reactive Prot, Quant (0.0-0.9) mg/dL Total Protein 6.0 L (6.2-8.2) gm/dL Albumin 3.2 L (3.4-5.0) gm/dl Urine Protein (NEGATIVE) mg/dL Urine Blood (NEGATIVE) /ul Urine Bilirubin (NEGATIVE) mg/dl Ur Leukocyte Esterase (NEGATIVE) /ul Urine RBC (0-5) /hpf Urine WBC (0-5) /hpf Urine Bacteria (NONE) Laboratory Results WBC 9.2 K/mm3 (4.0-10.5) 02/05/20 17:30 RBC 4.10 M/mm3 (4.2-5.4) L 02/05/20 17:30 Hgb 12.8 gm/dL (12.5-16.0) 02/05/20 17:30 Hct 36.4 % (37.0-47.0) L 02/05/20 17:30 MCV 88.8 fl (78-100) 02/05/20 17:30 MCH 31.2 pg (27-31) H 02/05/20 17:30 MCHC 35.2 g/dl (32-36) 02/05/20 17:30 RDW 13.9 % (11.5-14.0) 02/05/20 17:30 Plt Count 191 K/mm3 (150-450) 02/05/20 17:30 MPV 11.6 fl (8-12.5) 02/05/20 17:30 Immature Gran % (Auto) 0.20 % (0.001-0.429) 02/05/20 17:30 Immature Gran # (Auto) 0.02 K/mm3 (0.000-0.0310) 02/05/20 17:30 Neutrophils % 79.3 % (42-75.0) H 02/05/20 17:30 Lymphocytes % 11.7 % (20-51) L 02/05/20 17:30 Monocytes % 7.4 % (0.0-9) 02/05/20 17:30 Eosinophils % 0.7 % (0.0-3.0) 02/05/20 17: Basophils % 0.7 % (0.0-1.0) 02/05/20 17:30 Nucleated RBC % 0.0 k/mm3 (0-1) 02/05/20 17:30 Neutrophils # 7.3 K/mm3 (1.3-6.0) H 02/05/20 17:30 Lymphocytes # 1.08 k/mm3 (1.5-3.5) L 02/05/20 17:30 Monocytes # 0.7 k/mm3 (0.0-1.0) 02/05/20: Eosinophils # 0.1 k/mm3 (0.0-0.7) 02/05/20 17:30 Absolute Basophils 0.1 k/mm3 (0.0-0.1) 02/05/20 17:30 Sodium 146 mmol/L (132-142) H 02/06/20 06:05 Plasma Sodium 146 mmol/L (130-142) H 02/06/20 06:05 Potassium 3.2 mmol/L (3.4-4.6) L 02/06/20 06:05 Chloride 111 mmol/L (97-106) H 02/06/20 06:05 Carbon Dioxide 24.3 mmol/L (24-32.6) 02/06/20 06:05 Anion Gap 13.9 mmol/L (6.8-13.8) H 02/06/20 06:05 BUN 16 mg/dL (3-23) 02/06/20 06:05 Creatinine 1.02 mg/dL (0.4-1.4) 02/06/20 06:05 Est GFR (Non-Af Amer) 57 mL/min (60-130) L D 02/06/20 06:05 BUN/Creatinine Ratio 15.7 (9.0-21.6) 02/06/20 06:05 Random Glucose 91 mg/dL (70-110) 02/06/20 06:05 Calcium 9.7 mg/dL (7.9-10.9) 02/06/20 06:05 Calcium Adj for Albumin 10.0 mg/dL (8.4-10.2) 02/06/20 06:05 Total Bilirubin 1.7 mg/dL (0.0-1.1) H 02/06/20 06:05 AST 17 U/L (0-48) 02/06/20 06:05 ALT 11 U/L (19-67) L 02/06/20 06:05 Alkaline Phosphatase 71 U/L (50-170) 02/06/20 06:05 C-Reactive Prot, Quant 4.6 mg/dL (0.0-0.9) H 02/05/20 17:30 Total Protein 6.0 gm/dL (6.2-8.2) L 02/06/20 06:05 Albumin 3.2 gm/dl (3.4-5.0) L 02/06/20 06:05 Urine Color Yellow 02/05/20 18:24 Urine Appearance Cloudy (CLEAR) 02/05/20 18:24 Urine pH 6.0 pH (5.0-7.0) 02/05/20 18:24 Ur Specific [place] 1.025 SP.GR. (1.005-1.010) 02/05/20 18:24 Urine Protein 30 mg/dL (NEGATIVE) H 02/05/20 18:24 Urine Glucose (UA) Negative mg/dL (NEGATIVE) 02/05/20 18:24 Urine Ketones 15 mg/dL (NEGATIVE) 02/05/20 18:24 Urine Blood 50 /ul (NEGATIVE) H 02/05/20 18:24 Urine Nitrate Negative (NEGATIVE) 02/05/20 18:24 Urine Bilirubin 1 mg/dl (NEGATIVE) H 02/05/20 18:24 Urine Ictotest Negative (NEGATIVE) 02/05/20 18:24 Prot Sulfosalicylic Acd 1+ mg/dL (0) 02/05/20 18:24 Urine Urobilinogen Normal EU/dl (NORMAL) 02/05/20 18:24 Ur Leukocyte Esterase 25 /ul (NEGATIVE) H 02/05/20 18:24 Urine RBC 5-10 /hpf (0-5) H 02/05/20 18:24 Urine WBC 5-10 /hpf (0-5) H 02/05/20 18:24 Ur Epithelial Cells 0-5 /hpf (0-5) 02/05/20 18:24 Urine Bacteria 3+ (NONE) H 02/05/20 18:24 Urine Culture Comments Culture to follow 02/05/20 18:24 Ethyl Alcohol Less than 3.0 mg/dL (0.0-10.0) 02/05/20 17:30 Assessment/Plan - Assessment/Plan (1) Dementia Assessment: She is oriented only to self. She is trying to drink her coffee with a lid on. Chart review shows similar admissions in the past. She has medications ordered for dementia. She has lost 11 pounds in the last 4 months. She denies problems swallowing. I do not feel like she is safe to go home. PT consult pending. Will work with case management and her family to see about potential prison placement. Problem: Suspected (2) Confusion Assessment: There is a chance her encephalopathy could be due to her UTI however she does not appear acutely ill so this is less likely. I suspect this confusion is her baseline. Work with case management and her family to see about prison placement. She does not appear to be safe at home. Problem: Chronic (3) Urinary tract infection Assessment: Admission urinalysis positive for leukocyte esterase and 3+ bacteria. She is started on Bactrim, and culture pending. She is afebrile and white blood cell count is not elevated. Problem: Acute Qualifiers: Urinary tract infection type: acute cystitis Hematuria presence: with hematuria Qualified Code(s): N30.01 - Acute cystitis with hematuria (4) Dehydration Assessment: She received fluids overnight, but her mucous membranes are still dry this morning. She is eating breakfast currently. If she is unable to maintain p.o. hydration, will resume IV fluids. Problem: Acute (5) Hypokalemia Assessment: Admission potassium of 2.6. She received 40 mEq KCl IV, and will continue 40 mEq p.o. daily. Problem: Acute (6) Dysphonia Problem: Chronic (7) Complete paralysis of vocal cord Problem: Chronic (8) Asthma Assessment: She is not currently having respiratory distress and no abnormal lung sounds on exam. Problem: Chronic (9) Depression Assessment: Chart review shows she is prescribed duloxetine, doxepin, Remeron. 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 She reports not taking these medications though. She has lost some weight since September, so can resume Remeron only on discharge. Problem: Chronic
[2020-02-06] MEDS: SULFAMETHOXAZOLE/TRIMETHOPRIM 1 TAB TABLET PO SCH ×2 (10:01→20:16)
[2020-02-06] MEDS: POTASSIUM CHLORIDE 20 MEQ TABLET.SA PO SCH (10:01)
[2020-02-07 06:48] LABS: Anion Gap 11.4 mmol/L (6.8-13.8); BUN/Creatinine Ratio 15.6 (9.0-21.6); Bilirubin, Total 0.8 mg/dL (0.0-1.1); Ca. Corrected For Albumin 10.4 mg/dL (8.4-10.2); Calcium * 9.9 mg/dL (7.9-10.9); Carbon Dioxide 27.9 mmol/L (24-32.6); Potassium 3.3 mmol/L (3.4-4.6); Total Protein 5.8 gm/dL (6.2-8.2)
[2020-02-07] MEDS: SULFAMETHOXAZOLE/TRIMETHOPRIM 1 TAB TABLET PO SCH ×2 (08:25→20:26)
[2020-02-07] MEDS: POTASSIUM CHLORIDE 20 MEQ TABLET.SA PO SCH (08:26)
--- NOTE | 2020-02-07 09:06 | PN ---
Subjective - Date and Time Seen Date: 02/07/20 Time: 08:59 Subjective Narrative: Patient reports feeling better this morning. She denies difficulty breathing. She did have an episode of urinary incontinence. Physical therapy evaluation yesterday recommended SNF. Objective - Review of Systems Generalized/Overall Review: Reports: Weakness. Denies: Fever Respiratory: Denies: Cough, Shortness of Breath Cardiac: Denies: Chest Pain, Edema Abdominal: Denies: Nausea, Vomiting, Constipation Genitourinary Symptoms: Reports: Incontinent. Denies: Burning Musculoskeletal Complaints: Reports: No Symptoms Reported Neurological: Reports: Weakness Skin: Reports: Other - Multiple tattoos - Vitals Vitals: Last Vital Signs Temp 37.2 C 02/07/20 06:31 Pulse 74 02/07/20 06:31 Resp 18 02/07/20 06:31 BP 125/67 02/07/20 06:31 Pulse Ox 95 02/07/20 06:31 - Abnormal Lab Findings Abnormal Lab Findings: Abnormal Lab Results 02/07/20 Range/Units 06:25 Sodium 145 H (132-142) mmol/L Plasma Sodium 145 H (130-142) mmol/L Potassium 3.3 L (3.4-4.6) mmol/L Chloride 109 H (97-106) mmol/L Est GFR (Non-Af Amer) 44 L D (60-130) mL/min Random Glucose 115 H (70-110) mg/dL Calcium Adj for Albumin 10.4 H (8.4-10.2) mg/dL ALT 10 L (19-67) U/L Total Protein 5.8 L (6.2-8.2) gm/dL Albumin 3.0 L (3.4-5.0) gm/dl - Exam Constitutional: Present: Alert, Elderly, Thin and frail - Oriented to self only. She does not know her location, and states the date is January 2000. Respiratory: Present: lungs clear, normal breath sounds, no respiratory distress Cardiovascular/Chest: Present: regular rate, rhythm Abdomen: Present: soft, nontender Extremity: Absent: lower extremity edema Eye contact: Present: cooperative, good eye contact Thoughts: Present: other - Reports living at home with her daughter, Ivonne, who is "about 40" years old Assessment/Plan - Problems/Diagnosis (1) Dementia Problem: Suspected Narrative: Chart review shows similar admissions in the past. She has medications ordered for dementia. She is oriented only to self. She has lost 11 pounds in the last 4 months, and her BMI is 17. She does not feel like she is safe to go home. PT consult recommended SNF placement after DC. Will work with case management and her family to see about potential fci placement. (2) Confusion Problem: Chronic (3) Urinary tract infection Problem: Acute Qualifiers: Urinary tract infection type: acute cystitis Hematuria presence: with hematuria Qualified Code(s): N30.01 - Acute cystitis with hematuria Narrative: Urine culture is growing strep. Today will be day 3 of Bactrim. She reports having incontinence, but she has oxybutynin on her medication list, so this is an ongoing problem. Will restart the oxybutynin. (4) Hypokalemia Problem: Acute Narrative: Improving. Today's potassium level was 3.3, up from 2.6 on admission. She received 40 mEq IV on admission, and 40 mEq p.o. yesterday. Will continue 40 mEq daily. (5) Dehydration Problem: Resolved (6) Dysphonia Problem: Chronic (7) Complete paralysis of vocal cord Problem: Chronic (8) Asthma Problem: Chronic Narrative: She is oxygenating well on room air without breathing difficulty. (9) Depression Problem: Chronic Narrative: Chart review shows she is prescribed duloxetine, doxepin, Remeron. These medications interact with each other and can cause CHICKEN STUFFER depression and psychomotor impairment. She reports not taking these medications though. She has lost some weight since September, so can resume Remeron on discharge.
[2020-02-07] MEDS: OXYBUTYNIN CHLORIDE 5 MG TABLET PO SCH (10:19)
[2020-02-08 06:41] LABS: Albumin * 2.9 gm/dl (3.4-5.0); Anion Gap 14.2 mmol/L (6.8-13.8); BUN/Creatinine Ratio 13.3 (9.0-21.6); Bilirubin, Total 0.5 mg/dL (0.0-1.1); Ca. Corrected For Albumin 10.4 mg/dL (8.4-10.2); Calcium * 9.8 mg/dL (7.9-10.9); Carbon Dioxide 22.5 mmol/L (24-32.6); Potassium 3.7 mmol/L (3.4-4.6); Total Protein 5.6 gm/dL (6.2-8.2)
[2020-02-08] MEDS: SULFAMETHOXAZOLE/TRIMETHOPRIM 1 TAB TABLET PO SCH (08:10)
[2020-02-08] MEDS: POTASSIUM CHLORIDE 20 MEQ TABLET.SA PO SCH (08:11)
[2020-02-08] MEDS: OXYBUTYNIN CHLORIDE 5 MG TABLET PO SCH (08:11)
--- NOTE | 2020-02-08 10:56 | DS ---
(1) Confusion Problem: Chronic (2) Urinary tract infection Problem: Resolved Qualifiers: Urinary tract infection type: acute cystitis Hematuria presence: with hematuria Qualified Code(s): N30.01 - Acute cystitis with hematuria (3) Dementia Problem: Suspected (4) Hypokalemia Problem: Resolved (5) Dehydration Problem: Resolved (6) Dysphonia Problem: Chronic (7) Complete paralysis of vocal cord Problem: Chronic (8) Asthma Problem: Chronic (9) Depression Problem: Chronic Date of Discharge:: 02/08/20 Hospital Course: Meals [employer] Wheels went to deliver on the day of admission and found her on the floor, and she seemed confused. Workup in the ED found hypokalemia with K+ of 2.6, UTI with leuk esterase, 3+ bacteria, and blood on UA. ETOH negative, and no significant abnormalities of her vitals. She was treated for the UTI, and her mentation improved. She felt comfortable leaving on the day of DC. Due to her difficulty with balance, a script for a walker was sent. PT recommends a wheeled walker to help prevent falls. She had some hypokalemia during her stay, which improved with 40 mEq KCl daily, and will continue on DC. Chart review shows she is prescribed duloxetine, doxepin, Remeron. These medications interact with each other and can cause MUD BOSS depression and psychomotor impairment. She reports not taking these medications though. She has lost some weight since September, so can resume Remeron only on discharge. Procedures Performed: none Results and Findings: Pending Mircobiology Results 02/05/20 18:24 Urine,Catheterized Urine Culture - Preliminary Streptococcus Species Lab Pending Results 02/05/20 17:30: WBC 9.2, RBC 4.10 L, Hgb 12.8, Hct 36.4 L, MCV 88.8, MCH 31.2 H, MCHC 35.2, RDW 13.9, Plt Count 191, MPV 11.6, Immature Gran % (Auto) 0.20, Immature Gran # (Auto) 0.02, Neutrophils % 79.3 H, Lymphocytes % 11.7 L, Monocytes % 7.4, Eosinophils % 0.7, Basophils % 0.7, Nucleated RBC % 0.0, Neutrophils # 7.3 H, Lymphocytes # 1.08 L, Monocytes # 0.7, Eosinophils # 0.1, Absolute Basophils 0.1 02/05/20 17:30: Sodium 148 H, Plasma Sodium 148 H, Potassium 2.8 L, Chloride 109 H, Carbon Dioxide 24.2, Anion Gap 17.6 H, BUN 19, Creatinine 1.24, Est GFR (Non- Af Amer) 45 L, BUN/Creatinine Ratio 15.3, Random Glucose 117 H, Calcium 10.8, Calcium Adj for Albumin 10.7 H, Total Bilirubin 2.1 H, AST 19, ALT 13 L, Alkaline Phosphatase 73, C-Reactive Prot, Quant 4.6 H, Total Protein 6.7, Albumin 3.7, Ethyl Alcohol Less than 3.0 02/05/20 18:24: Urine Color Yellow, Urine Appearance Cloudy, Urine pH 6.0, Ur Specific [place] 1.025, Urine Protein 30 H, Urine Glucose (UA) Negative, Urine Ketones 15, Urine Blood 50 H, Urine Nitrate Negative, Urine Bilirubin 1 H, Urine Ictotest Negative, Prot Sulfosalicylic Acd 1+, Urine Urobilinogen Normal, Ur Leukocyte Esterase 25 H, Urine RBC 5-10 H, Urine WBC 5-10 H, Ur Epithelial Cells 0-5, Urine Bacteria 3+ H, Urine Culture Comments Culture to follow 02/06/20 06:05: Sodium 146 H, Plasma Sodium 146 H, Potassium 3.2 L, Chloride 111 H, Carbon Dioxide 24.3, Anion Gap 13.9 H, BUN 16, Creatinine 1.02, Est GFR (Non- Af Amer) 57 L D, BUN/Creatinine Ratio 15.7, Random Glucose 91, Calcium 9.7, Calcium Adj for Albumin 10.0, Total Bilirubin 1.7 H, AST 17, ALT 11 L, Alkaline Phosphatase 71, Total Protein 6.0 L, Albumin 3.2 L 02/07/20 06:25: Sodium 145 H, Plasma Sodium 145 H, Potassium 3.3 L, Chloride 109 H, Carbon Dioxide 27.9, Anion Gap 11.4, BUN 20, Creatinine 1.28, Est GFR (Non-Af Amer) 44 L D, BUN/Creatinine Ratio 15.6, Random Glucose 115 H, Calcium 9.9, Calcium Adj for Albumin 10.4 H, Total Bilirubin 0.8, AST 12, ALT 10 L, Alkaline Phosphatase 67, Total Protein 5.8 L, Albumin 3.0 L 02/08/20 06:15: Sodium 142, Plasma Sodium 142, Potassium 3.7, Chloride 109 H, Carbon Dioxide 22.5 L, Anion Gap 14.2 H, BUN 16, Creatinine 1.20, Est GFR (Non- Af Amer) 47 L, BUN/Creatinine Ratio 13.3, Random Glucose 91, Calcium 9.8, Calcium Adj for Albumin 10.4 H, Total Bilirubin 0.5, AST 13, ALT 12 L, Alkaline Phosphatase 54, Total Protein 5.6 L, Albumin 2.9 L Discharge Location: Home Disposition: Home self-care Condition: Stable Discharge Activity: Activity as tolerated Discharge Diet: General/regular food Referrals: Arcelia Kramer MD [Primary Care Provider] - One Week Problem Oriented Discharge Instructions to Patient/Family: Urinary Tract Infection, Adult, [id number] Prescriptions (Any new or edited meds): Sulfamethoxazole/Trimethoprim [Bactrim Ds] 1 tab PO BID #6 tab Transmission Status: Pending to [facility] Potassium Chloride [K-Dur] 40 meq PO DAILY #30 tablet.sa Transmission Status: Pending to [facility] Complete Home Medications List: Complete Home Medication List: mirtazapine 15 mg tablet 15 mg PO HS #90 tab 09/22/18 Fluticasone/Vilanterol [Breo Ellipta 100-25 Mcg INH] 1 inh INH DAILY 09/22/19 Ibuprofen [Motrin] 600 mg PO Q6H PRN tab 09/25/19 Fluticasone Propionate [Flonase Allergy Relief] 1 spray INTRANASAL DAILY PRN 02/07/20 Potassium Chloride [K-Dur] 40 meq PO DAILY #30 tablet.sa 02/08/20 Sulfamethoxazole/Trimethoprim [Bactrim Ds] 1 tab PO BID #6 tab 02/08/20 Forms: Patient Portal Registration
[2020-02-08 15:23] VITALS: BP 123/64
== END 2020-02-08 15:30 | disposition home or self-care (01) ==
LOC: MS 17:09 → ER 17:09 → MS 19:35
PROVIDERS: ADMIT Family Medicine; ATTEND Family Medicine
DX: R49.0 Dysphonia; E87.1 Hypo-osmolality and hyponatremia; E87.6 Hypokalemia; E86.0 Dehydration; F03.90 Unspecified dementia, unspecified severity, without behavioral disturbance, psychotic disturbance, mood disturbance, and anxiety; B95.5 Unspecified streptococcus as the cause of diseases classified elsewhere; J38.00 Paralysis of vocal cords and larynx, unspecified; F05 Delirium due to known physiological condition; R53.1 Weakness; N30.01 Acute cystitis with hematuria; J44.9 Chronic obstructive pulmonary disease, unspecified; Z87.891 Personal history of nicotine dependence
CPT/HCPCS: 36415; 80053; 81001; 85025; 86140; 87077; 87086; 87186; 93005; 96361; 96365; 96366; 97110; 97116; 97162; 99285; G0378

== ENCOUNTER 2020-02-19 09:18 | Inpatient (IN) ==
[2020-02-19] MEDS ORDERED: NORMAL SALINE 1,000 ML IV ONE ×2 (10:27→11:51)
[2020-02-19 10:43] LABS: Hematocrit 40.8 % (37.0-47.0); Hemoglobin 13.8 gm/dL (12.5-16.0); Mean Cell Volume 92.1 fl (78-100); Mean Corpuscular Hemoglobin 31.2 pg (27-31); Mean Corpuscular Hgb Conc 33.8 g/dl (32-36); Mean Platelet Volume 11.4 fl (8-12.5); Neutrophil # 7.3 K/mm3 (1.3-6.0); Neutrophil % 74.4 % (42-75.0); Platelet Count 207 K/mm3 (150-450); Red Blood Count 4.43 M/mm3 (4.2-5.4); Red Cell Distribution Width 14.4 % (11.5-14.0); White Blood Count 9.9 K/mm3 (4.0-10.5)
[2020-02-19 11:01] LABS: ALT 17 U/L (19-67); AST 22 U/L (0-48); Albumin * 4.2 gm/dl (3.4-5.0); Alkaline Phosphatase * 82 U/L (50-170); Anion Gap 15.6 mmol/L (6.8-13.8); BUN/Creatinine Ratio 25.2 (9.0-21.6); Bilirubin, Total 1.2 mg/dL (0.0-1.1); Blood Urea Nitrogen 28 mg/dL (3-23); CK Total * 361 U/L (0-259); Calcium * 11.5 mg/dL (7.9-10.9); Carbon Dioxide 26.4 mmol/L (24-32.6); Chloride 109 mmol/L (97-106); Glucose * 100 mg/dL (70-110); Sodium 147 mmol/L (132-142); Total Protein 7.3 gm/dL (6.2-8.2); Troponin I Less than 0.017 ng/mL (0.00-0.10)
--- NOTE | 2020-02-19 11:04 | ERNOTE ---
Medical Problem HPI - Narrative Date of Service: 02/19/20 - General Chief Complaint: General Assessment Time Seen by Provider: 02/19/20 10:06 Source: EMS, old records Exam Limitations: clinical condition, dementia - Immun/Allergies/Home Medications Immunizations: IMMUNIZATION HX Immunizations Up to Date Yes History of Influenza Vaccine Yes Hx Pneumococcal Vaccination Yes Allergies/Adverse Reactions: Allergies acetaminophen [From Tylenol] Allergy (Intermediate, Verified 02/18/20 09:44) affects asthma aspirin Allergy (Intermediate, Verified 02/18/20 09:44) Breathing troubles atorvastatin [From Lipitor] Adverse Reaction (Intermediate, Verified 02/18/20 09:44) Memory issues naproxen [From Naprosyn] Adverse Reaction (Unknown, Verified 02/18/20 09:44) Swelling in lower extremity Home Medications: HOME MEDICATIONS Fluticasone/Vilanterol [Breo Ellipta 100-25 Mcg INH] 1 inh INH DAILY 09/22/19 [Last Taken Unknown] Fluticasone Propionate [Flonase Allergy Relief] 1 spray INTRANASAL DAILY PRN 02/07/20 [Last Taken Unknown] Potassium Chloride [K-Dur] 40 meq PO DAILY #30 tablet.sa 02/08/20 [Last Taken Unknown] Duloxetine HCl [Cymbalta] 60 mg PO DAILY 02/18/20 [Last Taken Unknown] Penicillin V Potassium 500 mg PO TID 02/18/20 [Last Taken Unknown] - History of Present History Narrative: patient presents to ed with c/o fall at home was found on floor and had probably laid al night, was seen yesterday and treated and released for some condition Timing: constant, getting worse Modifying Factors - (Improves): Present: other - nothing Modifying Factors - (Worsens): Present: other - nothing Review of Systems - Narrative Narrative: unable to obtain ros due to prexisting dementia Medical History (Last Reviewed 02/19/20 @ 09:24 by Shaggy Beltran RN) Dysphonia (Chronic) Onset Date: 12/19/18 Dr. George Greenfield [facility] Complete paralysis of vocal cord (Chronic) Onset Date: 12/19/18 Dr. George Greenfield [facility]. Left. Osteoarthritis (Chronic) Onset Date: Unknown Psoriasis (Chronic) Onset Date: Unknown Overactive bladder (Chronic) Onset Date: 03/14/18 Neuropathy (Chronic) Onset Date: Unknown left leg numbness on an intermittent basis Knee pain (Chronic) Onset Date: Unknown Joint pain (Chronic) Onset Date: Unknown DJD (degenerative joint disease) (Chronic) Onset Date: ~2006 DDD at L4-L5 and spondylosthesis at L4. Neuroforaminal stenosis at L5. Diverticulosis of colon (Chronic) Onset Date: ~07/2005 cecum adenomatous polypand sigmoid diverticulosis Depression (Chronic) Onset Date: Unknown COPD (chronic obstructive pulmonary disease) (Chronic) Onset Date: ~1979 Asthma (Chronic) Onset Date: ~08/28/12 GERD (gastroesophageal reflux disease) Onset Date: Unknown Lumbar disc herniation Onset Date: Unknown Pessary maintenance Onset Date: ~10/29/14 Rectocele Onset Date: Unknown Uterovaginal prolapse, incomplete Onset Date: Unknown Cystocele Onset Date: 05/21/14 Hyperlipidemia Onset Date: Unknown Hypertension Onset Date: Unknown Hypokalemia Onset Date: Unknown Cerebral infarct Onset Date: Unknown lacunar infarcts Surgical History: Surgical History (Last Reviewed 02/19/20 @ 09:24 by Shaggy Beltran RN) History of bronchoscopy Onset Date: 01/09/19 Dr. George Greenfield, [facility]. Flexible bronchoscopy. History of carpal tunnel release Onset Date: ~200601/15/2007-right 02/26/2007 left History of colonoscopy Onset Date: ~07/2005 mild/mod diverticulosis involving colon distal to 40cm, 2mm plypoid change to the cecum History of hip replacement Onset Date: ~2007 b/l History of laryngoscopy Onset Date: 01/09/19 Dr. George Greenfield, [facility]. Direct laryngoscopy with endoscope and left Prolaryn gel injection for vocal cord paralysis. History of tubal ligation Onset Date: ~1977 Family History: Family History (Last Reviewed 02/19/20 @ 09:24 by Shaggy Beltran RN) Sister Hypertension Myocardial infarction Father , age 83-5 vessel CABG Heart disease Mother , age 82 Cancer Colon CA CVA (cerebral vascular accident) Hypertension Glaucoma Psoriasis Daughter , age 42 Cancer Social History: (Last Reviewed 02/19/20 @ 09:24 by Shaggy Beltran RN) Social History: adopted: No long-term: No Marital status: lives independently: Yes household members: none number of children: 2 caregiver/support person: Yes current occupational status: retired current occupation: Artist Highest education level completed: Associate degree: occupat Service: No Tobacco: Smoking Status: Former smoker Alcohol: alcohol intake: current alcohol intake frequency: holiday/special occasion Substance Use: substance use type: does not use Dietary Habits: caffeine: Yes Type: carbonated beverages, coffee Dian/Mormon: special dian needs: No Physical Exam - Physical Exam General Appearance: Present: mild distress, anxious, lethargic Head Exam: Present: ecchymosis, other - brusuing to left orbit, appeaqrs old, nurses report bruisng old Eye Exam: Normal inspection: bilateral, PERRL: bilateral, EOMI: bilateral Ears, Nose, Throat: Present: normal ENT inspection, dry mucous membranes Neck: Present: normal inspection, nontender Respiratory: Present: no respiratory distress, normal breath sounds, no accessor y muscle use, chest nontender, lungs clear Cardiovascular/Chest: Present: regular rate, rhythm, no murmur, normal peripheral pulses Gastrointestinal/Abdominal: Present: normal bowel sounds, nontender, nondistended, soft, no organomegaly Back Exam: Present: normal inspection, normal range of motion, no CVA tenderness, no vertebral tenderness Extremity Exam: Present: normal inspection, non-tender, normal range of motion, no edema Neurological Exam: Present: alert, oriented, normal mood/affect, no motor/sensory deficits Skin Exam: Present: normal color, warm/dry Lymphatic Exam: Present: no adenopathy Progress - Date and Time Seen: Date and Time: 02/19/20 12:36 patient reaccessed and current condition with dementia and frequent fall, as well as patient lives alone puts patient at continued risk 02/19/20 14:39 patient improved somewhat case discussed with case management and dr connors, due to condition and weakness felt prudent to admit to observation, dr connors evaluates and accepts patient for admission - Results and Orders Patient's Lab Results:: I have reviewed the patient's lab results. - Vital Signs Patient's Vital Signs:: I have reviewed the patient's vital signs. Vital Signs: Vital Signs 02/19/20 09:18 Temperature 36.7 C Pulse Rate 86 Respiratory Rate 16 Blood Pressure 135/91 H O2 Sat by Pulse Oximetry 95 - Progress/Reassessment Chief Complaint: General Assessment Progress:: Unchanged - Transfer of Care Expected Disposition: Admit Plan - Plan Plan: to admit to observation Departure Clinical Impression: Dehydration, Orthostatic hypotension - Departure Disposition: Short Term Hospital Inpatient Condition: Serious Referrals: Arcelia Kramer MD [Primary Care Provider] -
[2020-02-19 11:10] LABS: Urine Bilirubin Negative (NEGATIVE); Urine Blood 50 /ul (NEGATIVE); Urine Ketone Negative (NEGATIVE); Urine Nitrite Negative (NEGATIVE); Urine Protein 15 mg/dL (NEGATIVE); Urine Specific Gravity 1.025 SP.GR. (1.005-1.010); Urine Urobilinogen Normal (NORMAL)
[2020-02-19 11:22] LABS: Urine Appearance Clear (CLEAR); Urine Bacteria 2+; Urine Color Yellow; Urine WBC 0-5 /hpf (0-5)
[2020-02-19 11:23] LABS: Urine Amorphous Sediment TRACE (NONE-FEW)
[2020-02-19] MEDS ORDERED: CIPROFLOXACIN IN 5 % DEXTROSE 400 MG/200 ML BAG IV SCH (15:00)
--- NOTE | 2020-02-19 16:18 | HP ---
Chief Complaint - Chief Complaint Date of Service: 02/19/20 Time of Service: 15:14 Chief Complaint: Fall, weakness, altered mentation History of Present Illness: Nadya is a 74 yo female who presents to the [facility] ER after a fall at home. She first arrived to the ER obtunded with little ability to talk or move. She had a head CT that showed no acute changes. She was able to report some hip discomfort and a pelvis xray was obtained and showed no acute change. She also had a chest xray that showed no acute abnormality. Bloodwork and urine was also studied and showed elevated sodium suggesting dehydration and bacteria in the urine, a culture is pending. She was given a liter of normal saline in the ER and at the completion of that she was much more alert and conversant. She reports no pain, nausea, fever, or chills. She does admit to weakness and not eating or drinking well at home. She admits to falling but does not feel injured from her fall, just weak and unsteady. Medical History (Last Reviewed 02/19/20 @ 15:23 by Darcy Castro RN) Dysphonia (Chronic) Onset Date: 12/19/18 Dr. George Greenfield, [facility] Complete paralysis of vocal cord (Chronic) Onset Date: 12/19/18 Dr. George Greenfield, [facility]. Left. Osteoarthritis (Chronic) Onset Date: Unknown Psoriasis (Chronic) Onset Date: Unknown Overactive bladder (Chronic) Onset Date: 03/14/18 Neuropathy (Chronic) Onset Date: Unknown left leg numbness on an intermittent basis Knee pain (Chronic) Onset Date: Unknown Joint pain (Chronic) Onset Date: Unknown DJD (degenerative joint disease) (Chronic) Onset Date: ~2006 DDD at L4-L5 and spondylosthesis at L4. Neuroforaminal stenosis at L5. Diverticulosis of colon (Chronic) Onset Date: ~07/2005 cecum adenomatous polypand sigmoid diverticulosis Depression (Chronic) Onset Date: Unknown COPD (chronic obstructive pulmonary disease) (Chronic) Onset Date: ~1979 Asthma (Chronic) Onset Date: ~08/28/12 GERD (gastroesophageal reflux disease) Onset Date: Unknown Lumbar disc herniation Onset Date: Unknown Pessary maintenance Onset Date: ~10/29/14 Rectocele Onset Date: Unknown Uterovaginal prolapse, incomplete Onset Date: Unknown Cystocele Onset Date: 05/21/14 Hyperlipidemia Onset Date: Unknown Hypertension Onset Date: Unknown Hypokalemia Onset Date: Unknown Cerebral infarct Onset Date: Unknown lacunar infarcts Surgical History: Surgical History (Last Reviewed 02/19/20 @ 15:23 by Darcy Castro RN) History of bronchoscopy Onset Date: 01/09/19 Dr. George Greenfield, [facility]. Flexible bronchoscopy. History of carpal tunnel release Onset Date: ~200601/15/2007-right 02/26/2007 left History of colonoscopy Onset Date: ~07/2005 mild/mod diverticulosis involving colon distal to 40cm, 2mm plypoid change to the cecum History of hip replacement Onset Date: ~2007 b/l History of laryngoscopy Onset Date: 01/09/19 Dr. George Greenfield, [facility]. Direct laryngoscopy with endoscope and left Prolaryn gel injection for vocal cord paralysis. History of tubal ligation Onset Date: ~1977 Family History: Family History (Last Reviewed 02/19/20 @ 15:23 by Darcy Castro RN) Sister Hypertension Myocardial infarction Father , age 83-5 vessel CABG Heart disease Mother , age 82 Cancer Colon CA CVA (cerebral vascular accident) Hypertension Glaucoma Psoriasis Daughter , age 42 Cancer Social History: (Last Reviewed 02/19/20 @ 15:23 by Darcy Castro RN) Social History: adopted: No halfway: No Marital status: lives independently: Yes household members: none number of children: 2 caregiver/support person: Yes current occupational status: retired current occupation: Artist Highest education level completed: Associate degree: occupat Service: No Tobacco: Smoking Status: Former smoker Alcohol: alcohol intake: current alcohol intake frequency: holiday/special occasion Substance Use: substance use type: does not use Dietary Habits: caffeine: Yes Type: carbonated beverages, coffee Dian/Latter-Day: special dian needs: No Review Of Systems (GEN) - Review of Systems Generalized/Overall Review: Present: Weakness. Absent: Chills, Fever EENTM: Present: No Symptoms Reported Respiratory: Absent: Cough, Shortness of Breath Cardiac: Absent: Chest Pain, Edema Abdominal: Absent: Nausea, Vomiting Genitourinary: Present: Incontinent. Absent: Burning Musculoskeletal: Absent: Joint Pain, Back Pain Neurological: Present: Weakness. Absent: Headache Skin: Present: No Symptoms Reported Endocrine: Present: No Symptoms Reported Immunizations: IMMUNIZATION HX Immunizations Up to Date Yes History of Influenza Vaccine Yes Hx Pneumococcal Vaccination Yes Allergies/Adverse Reactions: Allergies Allergy/AdvReac Type Severity Reaction Status Date / Time acetaminophen [From Tylenol] Allergy Intermediate affects Verified 02/19/20 15:34 asthma aspirin Allergy Intermediate Breathing Verified 02/19/20 15:34 troubles atorvastatin [From Lipitor] AdvReac Intermediate Memory Verified 02/19/20 15:34 issues naproxen [From Naprosyn] AdvReac Unknown Swelling Verified 02/19/20 15:34 in lower extremity Home Medications: HOME MEDICATIONS Fluticasone/Vilanterol [Breo Ellipta 100-25 Mcg INH] 1 inh INH DAILY 09/22/19 [Last Taken Unknown] Fluticasone Propionate [Flonase Allergy Relief] 1 spray INTRANASAL DAILY PRN 02/07/20 [Last Taken Unknown] Potassium Chloride [K-Dur] 40 meq PO DAILY #30 tablet.sa 02/08/20 [Last Taken Unknown] Ibuprofen [Motrin] 600 mg PO Q6H PRN 02/19/20 [Last Taken Unknown] Mirtazapine [Mirtazapine (Remeron)] 15 mg PO HS 02/19/20 [Last Taken Unknown] Exam - Exam Vital Signs: Vital Signs - Last Taken Temp 36.7 C 02/19/20 09:18 Pulse 70 02/19/20 14:30 Resp 16 02/19/20 14:30 BP 124/77 02/19/20 14:30 Pulse Ox 98 02/19/20 14:30 Constitutional: Present: Alert, Other - patient incontinent of urine. Absent: Oriented x3 - oriented to person and place only ENT Exam: Present: hearing grossly normal Eye Exam: bilateral eye: normal inspection Respiratory: Present: lungs clear, no respiratory distress Cardiovascular/Chest: Present: regular rate, rhythm, no edema Abdomen: Present: Normal bowel sounds, soft, nontender, nondistended Skin Exam: Present: normal color, warm/dry, no cyanosis Neurologic: Present: other - in a wheelchair, patient appears weak and movements and speech are slow Diagnostic Studies: Abnormal Lab Results 02/19/20 02/19/20 02/19/20 Range/Units 10:39 10:39 10:55 MCH 31.2 H (27-31) pg RDW 14.4 H (11.5-14.0) % Immature Gran # (Auto) 0.04 H (0.000-0.0310) K/mm3 Lymphocytes % 17.6 L (20-51) % Neutrophils # 7.3 H (1.3-6.0) K/mm3 Sodium 147 H (132-142) mmol/L Plasma Sodium 147 H (130-142) mmol/L Chloride 109 H (97-106) mmol/L Anion Gap 15.6 H (6.8-13.8) mmol/L BUN 28 H (3-23) mg/dL Est GFR (Non-Af Amer) 51 L (60-130) mL/min BUN/Creatinine Ratio 25.2 H (9.0-21.6) Calcium 11.5 H (7.9-10.9) mg/dL Calcium Adj for Albumin 11.0 H (8.4-10.2) mg/dL Total Bilirubin 1.2 H (0.0-1.1) mg/dL ALT 17 L (19-67) U/L Creatine Kinase 361 H (0-259) U/L Urine Protein 15 H (NEGATIVE) mg/dL Urine Blood 50 H (NEGATIVE) /ul Urine RBC 10-25 H (0-5) /hpf Urine Bacteria 2+ H (NONE) Laboratory Results WBC 9.9 K/mm3 (4.0-10.5) 02/19/20 10:39 RBC 4.43 M/mm3 (4.2-5.4) 02/19/20 10:39 Hgb 13.8 gm/dL (12.5-16.0) 02/19/20 10:39 Hct 40.8 % (37.0-47.0) 02/19/20 10:39 MCV 92.1 fl (78-100) 02/19/20 10:39 MCH 31.2 pg (27-31) H 02/19/20 10:39 MCHC 33.8 g/dl (32-36) 02/19/20 10:39 RDW 14.4 % (11.5-14.0) H 02/19/20 10:39 Plt Count 207 K/mm3 (150-450) 02/19/20 10:39 MPV 11.4 fl (8-12.5) 02/19/20 10:39 Immature Gran % (Auto) 0.40 % (0.001-0.429) 02/19/20 10:39 Immature Gran # (Auto) 0.04 K/mm3 (0.000-0.0310) H 02/19/20 10:39 Neutrophils % 74.4 % (42-75.0) 02/19/20 10:39 Lymphocytes % 17.6 % (20-51) L 02/19/20 10:39 Monocytes % 5.9 % (0.0-9) 02/19/20 10:39 Eosinophils % 1.2 % (0.0-3.0) 02/19/20 10:39 Basophils % 0.5 % (0.0-1.0) 02/19/20 10:39 Nucleated RBC % 0.0 k/mm3 (0-1) 02/19/20 10:39 Neutrophils # 7.3 K/mm3 (1.3-6.0) H 02/19/20 10:39 Lymphocytes # 1.73 k/mm3 (1.5-3.5) 02/19/20 10:39 Monocytes # 0.6 k/mm3 (0.0-1.0) 02/19/20 10:39 Eosinophils # 0.1 k/mm3 (0.0-0.7) 02/19/20 10:39 Absolute Basophils 0.1 k/mm3 (0.0-0.1) 02/19/20 10:39 Sodium 147 mmol/L (132-142) H 02/19/20 10:39 Plasma Sodium 147 mmol/L (130-142) H 02/19/20 10:39 Potassium 4.0 mmol/L (3.4-4.6) 02/19/20 10:39 Chloride 109 mmol/L (97-106) H 02/19/20 10:39 Carbon Dioxide 26.4 mmol/L (24-32.6) 02/19/20 10:39 Anion Gap 15.6 mmol/L (6.8-13.8) H 02/19/20 10:39 BUN 28 mg/dL (3-23) H 02/19/20 10:39 Creatinine 1.11 mg/dL (0.4-1.4) 02/19/20 10:39 Est GFR (Non-Af Amer) 51 mL/min (60-130) L 02/19/20 10:39 BUN/Creatinine Ratio 25.2 (9.0-21.6) H 02/19/20 10:39 Random Glucose 100 mg/dL (70-110) 02/19/20 10:39 Calcium 11.5 mg/dL (7.9-10.9) H 02/19/20 10:39 Calcium Adj for Albumin 11.0 mg/dL (8.4-10.2) H 02/19/20 10:39 Total Bilirubin 1.2 mg/dL (0.0-1.1) H 02/19/20 10:39 AST 22 U/L (0-48) 02/19/20 10:39 ALT 17 U/L (19-67) L 02/19/20 10:39 Alkaline Phosphatase 82 U/L (50-170) 02/19/20 10:39 Creatine Kinase 361 U/L (0-259) H 02/19/20 10:39 Troponin I Less than 0.017 ng/mL (0.00-0.10) 02/19/20 10:39 Total Protein 7.3 gm/dL (6.2-8.2) 02/19/20 10:39 Albumin 4.2 gm/dl (3.4-5.0) 02/19/20 10:39 Urine Color Yellow 02/19/20 10:55 Urine Appearance Clear (CLEAR) 02/19/20 10:55 Urine pH 6.0 pH (5.0-7.0) 02/19/20 10:55 Ur Specific [place] 1.025 SP.GR. (1.005-1.010) 02/19/20 10:55 Urine Protein 15 mg/dL (NEGATIVE) H 02/19/20 10:55 Urine Glucose (UA) Negative mg/dL (NEGATIVE) 02/19/20 10:55 Urine Ketones Negative mg/dL (NEGATIVE) 02/19/20 10:55 Urine Blood 50 /ul (NEGATIVE) H 02/19/20 10:55 Urine Nitrate Negative (NEGATIVE) 02/19/20 10:55 Urine Bilirubin Negative mg/dl (NEGATIVE) 02/19/20 10:55 Prot Sulfosalicylic Acd 1+ mg/dL (0) 02/19/20 10:55 Urine Urobilinogen Normal EU/dl (NORMAL) 02/19/20 10:55 Ur Leukocyte Esterase Negative /ul (NEGATIVE) 02/19/20 10:55 Urine RBC 10-25 /hpf (0-5) H 02/19/20 10:55 Urine WBC 0-5 /hpf (0-5) 02/19/20 10:55 Ur Epithelial Cells 0-5 /hpf (0-5) 02/19/20 10:55 Amorphous Sediment Trace (NONE-FEW) 02/19/20 10:55 Urine Bacteria 2+ (NONE) H 02/19/20 10:55 Urine Culture Comments Culture to follow 02/19/20 10:55 Assessment/Plan - Narrative Narrative: Nadya is a 74 yo female with: 1) Acute delirium with weakness and obtundation on arrival to ER. She has improved with hydration. Labs do not suggest severe dehydration but with her presentating symptoms and improvement with fluid she was to some degree dehydrated. There is also the possibility of URI. UA showed bacteria and blood. Will follow culture. Due to significant decrease in mentation at presentation will go ahead and start antibiotics and treat as UTI. Will continue fluids. This acute delirium is on top of chronic dementia and Nadya appears unable to care for herself at home leading to these situations where she has not been eating, drinking, or taking care of herself to the point she is significantly sick. Once she is better she may continue to have these cycles if she is not able to care for herself at home or have anyone to assist in her care to prevent these episodes. Will have case management look into placement. 2) Mild dehydration 3) Possible UTI - Assessment/Plan (1) Acute delirium Problem: Acute (2) Urinary tract infection Problem: Suspected Qualifiers: Urinary tract infection type: acute cystitis Hematuria presence: with hematuria Qualified Code(s): N30.01 - Acute cystitis with hematuria (3) Dehydration Problem: Resolved (4) Hypernatremia Problem: Acute
[2020-02-19] MEDS: MIRTAZAPINE 15 MG TABLET PO SCH (21:47)
[2020-02-19] MEDS: CIPROFLOXACIN HCL 500 MG TABLET PO SCH (21:47)
[2020-02-19] MEDS: NORMAL SALINE 1,000 ML IV PRN (21:51)
[2020-02-20] MEDS: NORMAL SALINE 1,000 ML IV PRN ×2 (07:17→16:04)
[2020-02-20] MEDS: FLUTICASONE PROPION/SALMETEROL 14 PUFF DISK.W.DEV IH SCH ×2 (09:02→20:35)
[2020-02-20] MEDS: CIPROFLOXACIN HCL 500 MG TABLET PO SCH ×2 (09:02→20:36)
[2020-02-20] MEDS: MIRTAZAPINE 15 MG TABLET PO SCH (20:36)
--- NOTE | 2020-02-20 23:50 | PN ---
Subjective - Date and Time Seen Date: 02/20/20 Time: 10:30 Subjective Narrative: No nursing concerns. No patient concerns. Nadya has spoken little. She denies pain. She has not had any abnormal behaviors. She remains calm, pleasant, and quiet. Objective - Vitals Vitals: Last Vital Signs Temp 36.9 C 02/20/20 19:47 Pulse 64 02/20/20 19:47 Resp 21 H 02/20/20 19:47 BP 117/64 02/20/20 19:47 Pulse Ox 97 02/20/20 19:47 - Exam Constitutional: Present: Alert, Cooperative ENT Exam: Present: hearing grossly normal Respiratory: Present: lungs clear, normal breath sounds Cardiovascular/Chest: Present: regular rate, rhythm, no murmur Skin Exam: Present: normal color, warm/dry, no cyanosis Eye contact: Present: cooperative, good eye contact, other - speech is quiet and reserved Assessment/Plan Plan Narrative: Urine culture is negative. Her mental status has improved significantly with fluids and she is very alert. She does not speak much and is very calm and quiet. I do not think she is able to care for herself at home and discharge to home is unsafe. - Problems/Diagnosis (1) Acute delirium Problem: Resolved (2) Urinary tract infection Problem: Suspected Qualifiers: Urinary tract infection type: acute cystitis Hematuria presence: with hematuria Qualified Code(s): N30.01 - Acute cystitis with hematuria (3) Dehydration Problem: Resolved (4) Hypernatremia Problem: Acute
[2020-02-21] MEDS: NORMAL SALINE 1,000 ML IV PRN ×2 (00:08→09:11)
[2020-02-21] MEDS: FLUTICASONE PROPION/SALMETEROL 14 PUFF DISK.W.DEV IH SCH ×2 (09:13→20:45)
[2020-02-21] MEDS: CIPROFLOXACIN HCL 500 MG TABLET PO SCH (09:13)
[2020-02-21 13:27] LABS: Hematocrit 31.2 % (37.0-47.0); Hemoglobin 10.7 gm/dL (12.5-16.0); Mean Cell Volume 92.3 fl (78-100); Mean Corpuscular Hemoglobin 31.7 pg (27-31); Mean Corpuscular Hgb Conc 34.3 g/dl (32-36); Mean Platelet Volume 11.8 fl (8-12.5); Neutrophil # 4.5 K/mm3 (1.3-6.0); Neutrophil % 69.8 % (42-75.0); Platelet Count 131 K/mm3 (150-450); Red Blood Count 3.38 M/mm3 (4.2-5.4); Red Cell Distribution Width 14.5 % (11.5-14.0); White Blood Count 6.5 K/mm3 (4.0-10.5)
[2020-02-21 13:54] LABS: Anion Gap 11.7 mmol/L (6.8-13.8); BUN/Creatinine Ratio 10.9 (9.0-21.6); Bilirubin, Total 0.8 mg/dL (0.0-1.1); Ca. Corrected For Albumin 9.6 mg/dL (8.4-10.2); Calcium * 9.1 mg/dL (7.9-10.9); Carbon Dioxide 24.6 mmol/L (24-32.6); Total Protein 5.5 gm/dL (6.2-8.2)
[2020-02-21 14:07] LABS: Potassium 2.3 mmol/L (3.4-4.6)
[2020-02-21] MEDS ORDERED: POTASSIUM CHLORIDE IN WATER 100 ML IV ONE (14:30)
[2020-02-21] MEDS ORDERED: POTASSIUM CHLORIDE 40 MEQ/15 ML LIQUID PO ONE (14:35)
[2020-02-21] MEDS: GABAPENTIN 300 MG CAPSULE PO SCH ×2 (14:45→20:45)
[2020-02-21] MEDS: POTASSIUM CHLORIDE IN WATER 100 ML IV SCH ×3 (15:45→17:50)
--- NOTE | 2020-02-21 16:40 | PN ---
Subjective - Date and Time Seen Date: 02/21/20 Time: 11:30 Subjective Narrative: Nadya reports foot pain. She says this is chronic. No fever, chills, nausea, or vomiting. No shortness of breath. She otherwise feels well. Nursing reports she is weak and has difficulty swallowing, choking on food and water. Potassium is 2.3 Objective - Vitals Vitals: Last Vital Signs Temp 37.2 C 02/21/20 14:24 Pulse 85 02/21/20 14:29 Resp 17 02/21/20 14:24 BP 122/67 02/21/20 14:24 Pulse Ox 99 02/21/20 14:24 - Abnormal Lab Findings Abnormal Lab Findings: Abnormal Lab Results 02/21/20 02/21/20 Range/Units 12:54 12:54 RBC 3.38 L (4.2-5.4) M/mm3 Hgb 10.7 L (12.5-16.0) gm/dL Hct 31.2 L (37.0-47.0) % MCH 31.7 H (27-31) pg RDW 14.5 H (11.5-14.0) % Plt Count 131 L (150-450) K/mm3 Immature Gran % (Auto) 0.80 H (0.001-0.429) % Immature Gran # (Auto) 0.05 H (0.000-0.0310) K/mm3 Lymphocytes % 18.4 L (20-51) % Eosinophils % 3.9 H (0.0-3.0) % Lymphocytes # 1.19 L (1.5-3.5) k/mm3 Sodium 145 H (132-142) mmol/L Plasma Sodium 145 H (130-142) mmol/L Potassium 2.3 L* D (3.4-4.6) mmol/L Chloride 111 H (97-106) mmol/L Est GFR (Non-Af Amer) 52 L (60-130) mL/min Random Glucose 115 H (70-110) mg/dL ALT 16 L (19-67) U/L Total Protein 5.5 L (6.2-8.2) gm/dL Albumin 3.0 L (3.4-5.0) gm/dl - Exam Constitutional: Present: Alert, Other - oriented to person and place, she is quiet and weak, Thin and frail Respiratory: Present: lungs clear, normal breath sounds Cardiovascular/Chest: Present: regular rate, rhythm, no murmur Abdomen: Present: Normal bowel sounds, soft, nontender, nondistended Skin Exam: Present: normal color, warm/dry, no cyanosis Appearance: Present: appropriate appearance, appropriate insight, other - very soft spoken Thoughts: Present: normal thought pattern, no apparent hallucination Assessment/Plan Plan Narrative: Severe hypokalemia at 2.3, likely secondary to dehydration and poor oral intake. This was not seen on admission likely due to hemoconcentration, after fluids this became apparent. Will give 40meq IV potassium and 40meq oral potassium and monitor electrolytes. Will make her acute inpatient status due to the low potassium. She is significantly weak and also choking on oral intake. Will consult PT, OT, and ST. Urine culture is negative. She did not have a UTI, just signficantly dehydrated. Dehydration has corrected. Will saline lock fluids. - Problems/Diagnosis (1) Hypokalemia Problem: Acute (2) Acute delirium Problem: Resolved (3) Urinary tract infection Problem: Ruled-out Qualifiers: Urinary tract infection type: acute cystitis Hematuria presence: with hematuria Qualified Code(s): N30.01 - Acute cystitis with hematuria (4) Hypernatremia Problem: Acute (5) Dehydration Problem: Resolved
[2020-02-21 20:16] LABS: BUN/Creatinine Ratio 13.9 (9.0-21.6); Calcium * 8.3 mg/dL (7.9-10.9); Carbon Dioxide 23.5 mmol/L (24-32.6); Estimated Creat Clear 39.5; Potassium 3.5 mmol/L (3.4-4.6)
[2020-02-21] MEDS: MIRTAZAPINE 15 MG TABLET PO SCH (20:45)
[2020-02-22] MEDS: GABAPENTIN 300 MG CAPSULE PO SCH ×3 (05:07→20:54)
[2020-02-22 06:39] LABS: Hematocrit 29.6 % (37.0-47.0); Mean Cell Volume 91.9 fl (78-100); Mean Corpuscular Hemoglobin 31.1 pg (27-31); Mean Corpuscular Hgb Conc 33.8 g/dl (32-36); Mean Platelet Volume 11.8 fl (8-12.5); Neutrophil # 4.5 K/mm3 (1.3-6.0); Neutrophil % 65.1 % (42-75.0); Platelet Count 132 K/mm3 (150-450); Red Blood Count 3.22 M/mm3 (4.2-5.4); Red Cell Distribution Width 14.6 % (11.5-14.0)
[2020-02-22 06:55] LABS: Albumin * 2.7 gm/dl (3.4-5.0); Anion Gap 14.4 mmol/L (6.8-13.8); BUN/Creatinine Ratio 14.9 (9.0-21.6); Bilirubin, Total 0.5 mg/dL (0.0-1.1); Ca. Corrected For Albumin 9.2 mg/dL (8.4-10.2); Calcium * 8.5 mg/dL (7.9-10.9); Carbon Dioxide 24.3 mmol/L (24-32.6); Potassium 2.7 mmol/L (3.4-4.6); Total Protein 5.2 gm/dL (6.2-8.2)
[2020-02-22] MEDS: FLUTICASONE PROPION/SALMETEROL 14 PUFF DISK.W.DEV IH SCH ×2 (10:32→20:53)
[2020-02-22] MEDS ORDERED: POTASSIUM CHLORIDE 20 MEQ TABLET.SA PO ONE ×2 (13:21→20:00)
--- NOTE | 2020-02-22 16:42 | PN ---
Subjective - Date and Time Seen Date: 02/22/20 Time: 16:33 Subjective Narrative: I have no new complaints. Objective Objective Narrative: 74-year-old female admitted for mild dehydration, recurrent falls, poor social support, and hypokalemia was evaluated at bedside was found to be afebrile and in no acute distress. Patient continues to have hypokalemia therefore additional dose was ordered for today, we will order follow-up labs for tomorrow morning. She is tolerating PT and OT without any issues but was found to to be a high fall risk due to issues with balance and chronic pain in her feet. Therefore we will proceed with discharge plan to release patient to a long-term care facility. We will reevaluate her in the morning before discharging her. - Review of Systems Generalized/Overall Review: Reports: No Symptoms Reported EENTM: Reports: No Symptoms Reported Respiratory: Reports: No Symptoms Reported Cardiac: Reports: No Symptoms Reported Abdominal: Reports: No Symptoms Reported Genitourinary Symptoms: Reports: No Symptoms Reported Musculoskeletal Complaints: Reports: Joint Pain Neurological: Reports: Pre-existing Deficit Skin: Reports: No Symptoms Reported Endocrine: Reports: No Symptoms Reported - Vitals Vitals: Last Vital Signs Temp 36.7 C 02/22/20 14:21 Pulse 93 02/22/20 14:21 Resp 22 H 02/22/20 14:21 BP 118/61 02/22/20 14:21 Pulse Ox 97 02/22/20 14:21 - Abnormal Lab Findings Abnormal Lab Findings: Abnormal Lab Results 02/21/20 02/22/20 02/22/20 Range/Units 20:05 06:30 06:30 RBC 3.22 L (4.2-5.4) M/mm3 Hgb 10.0 L (12.5-16.0) gm/dL Hct 29.6 L (37.0-47.0) % MCH 31.1 H (27-31) pg RDW 14.6 H (11.5-14.0) % Plt Count 132 L (150-450) K/mm3 Sodium 144 H (132-142) mmol/L Plasma Sodium 145 H (130-142) mmol/L Potassium 2.7 L D (3.4-4.6) mmol/L Chloride 109 H 108 H (97-106) mmol/L Carbon Dioxide 23.5 L (24-32.6) mmol/L Anion Gap 14.4 H (6.8-13.8) mmol/L Est GFR (Non-Af Amer) 57 L 57 L (60-130) mL/min Random Glucose 131 H 139 H (70-110) mg/dL ALT 13 L (19-67) U/L Total Protein 5.2 L (6.2-8.2) gm/dL Albumin 2.7 L (3.4-5.0) gm/dl - Exam Constitutional: Present: Alert, Cooperative, Well developed, No distress, Elderly, Thin and frail ENT Exam: Present: normal ENT inspection, hearing grossly normal Neck: Present: non-tender, full range of motion, supple, normal inspection, trachea midline Breasts: Present: Exam deferred Respiratory: Present: chest non-tender, lungs clear, normal breath sounds, no respiratory distress, no accessory muscle use Cardiovascular/Chest: Present: normal peripheral pulses, regular rate, rhythm, no chest tenderness, no edema, no gallop, no JVD, no murmur, no rub Abdomen: Present: Normal bowel sounds, soft, nontender, nondistended, no rebound tenderness, no hepatospenomegaly, no masses /Rectal: Present: Exam deferred Extremity: Present: normal range of motion, non-tender, no pedal edema, no calf tenderness, normal capillary refill Skin Exam: Present: normal color, warm/dry, no cyanosis Lymphatic: Present: no adenopathy 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 Thoughts: Present: no apparent hallucination Assessment/Plan Plan Narrative: Follow-up labs were ordered for tomorrow morning to reevaluate hypokalemia, if patient continues to show progress in the morning we will discharge to a long- term care facility. - Problems/Diagnosis (1) Dehydration Problem: Resolved (2) Hypokalemia Problem: Acute (3) Confusion Problem: Chronic (4) Dementia Problem: Suspected (5) Recurrent falls Problem: Chronic (6) Dysphonia Problem: Chronic (7) Joint pain Problem: Chronic (8) COPD (chronic obstructive pulmonary disease) Problem: Chronic
[2020-02-22] MEDS: MIRTAZAPINE 15 MG TABLET PO SCH (20:54)
[2020-02-23] MEDS: GABAPENTIN 300 MG CAPSULE PO SCH (05:06)
[2020-02-23 06:46] LABS: Albumin * 2.5 gm/dl (3.4-5.0); Anion Gap 11.3 mmol/L (6.8-13.8); BUN/Creatinine Ratio 15.3 (9.0-21.6); Bilirubin, Total 0.6 mg/dL (0.0-1.1); Ca. Corrected For Albumin 9.6 mg/dL (8.4-10.2); Calcium * 8.7 mg/dL (7.9-10.9); Carbon Dioxide 25.3 mmol/L (24-32.6); Potassium 3.6 mmol/L (3.4-4.6)
[2020-02-23] MEDS: FLUTICASONE PROPION/SALMETEROL 14 PUFF DISK.W.DEV IH SCH (08:30)
--- NOTE | 2020-02-23 09:22 | DS ---
(1) Dehydration Problem: Resolved (2) Hypokalemia Problem: Resolved (3) Confusion Problem: Chronic (4) Dementia Problem: Suspected (5) Recurrent falls Problem: Chronic (6) Dysphonia Problem: Chronic (7) Joint pain Problem: Chronic (8) COPD (chronic obstructive pulmonary disease) Problem: Chronic (9) Dysphagia Problem: Chronic Date of Discharge:: 02/23/20 Hospital Course: 74-year-old female admitted for mild dehydration, hypokalemia, recurrent falls, was evaluated at bedside was found to be afebrile and in no acute distress. Patient had an uneventful night according to nursing staff and no new symptoms have been reported. Labs ordered for this morning demonstrate resolution of her hypokalemia after several doses of potassium replacement. She appears to be in her usual state of health and has tolerated in hospital PT and OT. 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 Therefore the patient will be discharged with the recommended diet consistency to avoid aspiration. We are discharging patient to a long-term care facility du e to her poor social support and the fact that she lives alone. It has been determined by the physical therapist that the patient is a high fall risk and is not safe ambulating unsupervised or unassisted. She will be discharged with all her routine medications and with instructions to follow-up with her PCP within the next 2 weeks. Procedures Performed: none Results and Findings: Pending Mircobiology Results 02/19/20 15:20 Blood Blood Culture - Preliminary NO GROWTH AFTER 48 HOURS 02/19/20 10:39 Blood Blood Culture - Preliminary NO GROWTH AFTER 48 HOURS Lab Pending Results 02/19/20 10:39: WBC 9.9, RBC 4.43, Hgb 13.8, Hct 40.8, MCV 92.1, MCH 31.2 H, MCHC 33.8, RDW 14.4 H, Plt Count 207, MPV 11.4, Immature Gran % (Auto) 0.40, Immature Gran # (Auto) 0.04 H, Neutrophils % 74.4, Lymphocytes % 17.6 L, Monocytes % 5.9, Eosinophils % 1.2, Basophils % 0.5, Nucleated RBC % 0.0, Neutrophils # 7.3 H, Lymphocytes # 1.73, Monocytes # 0.6, Eosinophils # 0.1, Absolute Basophils 0.1 02/19/20 10:39: Sodium 147 H, Plasma Sodium 147 H, Potassium 4.0, Chloride 109 H, Carbon Dioxide 26.4, Anion Gap 15.6 H, BUN 28 H, Creatinine 1.11, Est GFR (Non-Af Amer) 51 L, BUN/Creatinine Ratio 25.2 H, Random Glucose 100, Calcium 11.5 H, Calcium Adj for Albumin 11.0 H, Total Bilirubin 1.2 H, AST 22, ALT 17 L, Alkaline Phosphatase 82, Creatine Kinase 361 H, Troponin I Less than 0.017, Total Protein 7.3, Albumin 4.2 02/19/20 10:39: C-Reactive Prot, Quant 0.7 02/19/20 10:55: Urine Color Yellow, Urine Appearance Clear, Urine pH 6.0, Ur Specific [place] 1.025, Urine Protein 15 H, Urine Glucose (UA) Negative, Urine Ketones Negative, Urine Blood 50 H, Urine Nitrate Negative, Urine Bilirubin Negative, Prot Sulfosalicylic Acd 1+, Urine Urobilinogen Normal, Ur Leukocyte Esterase Negative, Urine RBC 10-25 H, Urine WBC 0-5, Ur Epithelial Cells 0-5, Amorphous Sediment Trace, Urine Bacteria 2+ H, Urine Culture Comments Culture to follow 02/21/20 12:54: WBC 6.5 D, RBC 3.38 L, Hgb 10.7 L, Hct 31.2 L, MCV 92.3, MCH 31.7 H, MCHC 34.3, RDW 14.5 H, Plt Count 131 L, MPV 11.8, Immature Gran % (Auto) 0.80 H, Immature Gran # (Auto) 0.05 H, Neutrophils % 69.8, Lymphocytes % 18.4 L, Monocytes % 6.8, Eosinophils % 3.9 H, Basophils % 0.3, Nucleated RBC % 0.0, Neutrophils # 4.5, Lymphocytes # 1.19 L, Monocytes # 0.4, Eosinophils # 0.3, Absolute Basophils 0.0 02/21/20 12:54: Sodium 145 H, Plasma Sodium 145 H, Potassium 2.3 L* D, Chloride 111 H, Carbon Dioxide 24.6, Anion Gap 11.7, BUN 12 D, Creatinine 1.10, Est GFR (Non-Af Amer) 52 L, BUN/Creatinine Ratio 10.9, Random Glucose 115 H, Calcium 9.1, Calcium Adj for Albumin 9.6, Total Bilirubin 0.8, AST 17, ALT 16 L, Alkaline Phosphatase 57, Total Protein 5.5 L, Albumin 3.0 L 02/21/20 20:05: Sodium 142, Plasma Sodium 142, Potassium 3.5 D, Chloride 109 H, Carbon Dioxide 23.5 L, Anion Gap 13.0, BUN 14, Creatinine 1.01, Est GFR (Non-Af Amer) 57 L, BUN/Creatinine Ratio 13.9, Random Glucose 131 H, Calcium 8.3 02/22/20 06:30: WBC 7.0, RBC 3.22 L, Hgb 10.0 L, Hct 29.6 L, MCV 91.9, MCH 31.1 H, MCHC 33.8, RDW 14.6 H, Plt Count 132 L, MPV 11.8, Immature Gran % (Auto) 0.40, Immature Gran # (Auto) 0.03, Neutrophils % 65.1, Lymphocytes % 22.9, Monocytes % 8.3, Eosinophils % 3.0, Basophils % 0.3, Nucleated RBC % 0.0, Neutro phils # 4.5, Lymphocytes # 1.59, Monocytes # 0.6, Eosinophils # 0.2, Absolute Basophils 0.0 02/22/20 06:30: Sodium 144 H, Plasma Sodium 145 H, Potassium 2.7 L D, Chloride 108 H, Carbon Dioxide 24.3, Anion Gap 14.4 H, BUN 15, Creatinine 1.01, Est GFR (Non-Af Amer) 57 L, BUN/Creatinine Ratio 14.9, Random Glucose 139 H, Calcium 8.5, Calcium Adj for Albumin 9.2, Total Bilirubin 0.5, AST 15, ALT 13 L, Alkaline Phosphatase 63, Total Protein 5.2 L, Albumin 2.7 L 02/23/20 06:20: Sodium 143 H, Plasma Sodium 143 H, Potassium 3.6 D, Chloride 110 H, Carbon Dioxide 25.3, Anion Gap 11.3, BUN 13, Creatinine 0.85, Est GFR (Non-Af Amer) 70 D, BUN/Creatinine Ratio 15.3, Random Glucose 100, Calcium 8.7, Calcium Adj for Albumin 9.6, Total Bilirubin 0.6, AST 12, ALT 13 L, Alkaline Phosphatase 57, Total Protein 5.0 L, Albumin 2.5 L Discharge Location: Other - [facility] Disposition: Intermediate Care Facility ICF Condition: Poor Face to Face Encounter completed per CMS Guidelines: No Level of Care: ICF Discharge Activity: Activity as tolerated Discharge Diet: Mech soft, Other - Honey thickened liquids Usp Therapy: Physical Therapy, Occupation Therapy, Speech Therapy Additional [facility] Inst[facility] (free [facility], OT, and Speech therapies. Mechanical soft, honey liquids. Complete Home Medications List: Complete Home Medication List: Fluticasone/Vilanterol [Breo Ellipta 100-25 Mcg INH] 1 inh INH DAILY 09/22/19 Fluticasone Propionate [Flonase Allergy Relief] 1 spray INTRANASAL DAILY PRN 02/07/20 Ibuprofen [Motrin] 600 mg PO Q6H PRN 02/19/20 Mirtazapine [Remeron] 15 mg PO HS 02/19/20 Forms: Patient Portal Registration
[2020-02-23 11:18] VITALS: BP 131/73
== END 2020-02-23 11:45 | DRG 640 ==
LOC: ER 09:18 → MS 09:18
PROVIDERS: ADMIT Family Medicine; ATTEND Family Medicine
DX: W19.XXXA Unspecified fall, initial encounter; Z68.1 Body mass index [BMI] 19.9 or less, adult; E87.0 Hyperosmolality and hypernatremia; F05 Delirium due to known physiological condition; M25.571 Pain in right ankle and joints of right foot; E46 Unspecified protein-calorie malnutrition; M25.572 Pain in left ankle and joints of left foot; Z87.891 Personal history of nicotine dependence; F03.90 Unspecified dementia, unspecified severity, without behavioral disturbance, psychotic disturbance, mood disturbance, and anxiety; E87.6 Hypokalemia; N30.01 Acute cystitis with hematuria; R49.0 Dysphonia; R64 Cachexia; Z11.59 Encounter for screening for other viral diseases; J44.9 Chronic obstructive pulmonary disease, unspecified; I95.1 Orthostatic hypotension; R29.6 Repeated falls; E86.0 Dehydration; E43 Unspecified severe protein-calorie malnutrition; R53.1 Weakness
CPT/HCPCS: 36415; 70450; 71010; 71045; 72170; 80048; 80053; 81001; 82550; 84484; 85025; 86140; 87040; 87086; 92610; 93005; 96361; 96365; 96366; 96367; 97110; 97116; 97162; 97165; 99283; 99284; G0378; U0001